=== PATIENT | female | born 1940 | race Caucasian/White ===

== ENCOUNTER 2017-05-11 12:36 | Emergency (ER) | payer MEDICARE, MEDICAID ==
--- NOTE | 2017-05-11 12:52 | EDM.PDOC ---
ED HPI GENERAL MEDICAL PROBLEM - General Chief Complaint: Lower Extremity Injury/Pain Stated Complaint: PAIN FROM FALL Time Seen by Provider: 05/11/17 12:46 Source of Information: Reports: Patient, Old Records History Limitations: Reports: No Limitations - History of Present Illness INITIAL COMMENTS - FREE TEXT/NARRATIVE: HISTORY AND PHYSICAL: History of present illness: Patient is a 77-year-old female who is brought to the emergency room from [facility], with complaints of bilateral knee pain. [facility] staff report that the patient had fallen while using her walker onto her knees this afternoon. Initially she was complaining of left hip, thigh and knee pain, but is now currently complaining of bilateral knee pain. Denies hitting her head or any loss of consciousness. Does take an aspirin daily but no anticoagulants. Normally is ambulatory. 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 Past medical history of GERD, osteoarthritis, bipolar disorder, elevated cholesterol, Alzheimer's and anxiety disorder. Review of systems: As per history of present illness and below otherwise all systems reviewed and negative. Past medical history: As per history of present illness and as reviewed below otherwise noncontributory. Surgical history: As per history of present illness and as reviewed below otherwise noncontributory. Social history: No reported history of drug or alcohol abuse. Family history: As per history of present illness and as reviewed below otherwise noncontributory. Physical exam: General: Well-developed and well-nourished 77-year-old female. Alert and pleasantly confused (baseline). Nagel no acute distress HEENT: Atraumatic, normocephalic, pupils reactive, negative for conjunctival pallor or scleral icterus, mucous membranes moist, throat clear, neck supple, nontender, trachea midline. Lungs: Clear to auscultation, breath sounds equal bilaterally, chest nontender. Heart: S1S2, regular, negative for clicks, rubs, or JVD. Abdomen: Soft, nondistended, nontender. Negative for masses or hepatosplenomegaly. Negative for costovertebral tenderness. Pelvis: Stable nontender. Genitourinary: Deferred. Rectal: Deferred. Extremities: Moves all per self, no tenderness with palpation, good flexion and extension of bilateral ankle/knee and hip. Negative for cords or calf pain. Strong pedal pulses bilaterally. Neurovascular unremarkable. Neuro: Awake, alert, oriented. Cranial nerves II through XII unremarkable. Cerebellum unremarkable. Motor and sensory unremarkable throughout. Exam nonfocal. Skin: Intact, warm, dry. No bruising or errythema noted. Due to the patient's mental status which is currently baseline and we'll do a head CT. X-ray of pelvis and bilateral knees. Head CT is normal. X-ray shows some degenerative changes but no acute fractures or dislocations. Nursing staff was able to get the patient to ambulate freely in the hallway with her walker. He does not complain of any pain or show any difficulty with ambulation. We'll discharge her back to double home. Results were shared with both a little nursing staff. Diagnostics: Xray Pelvis, xray bilateral knee and head CT Therapeutics: Ice Impression: 1. Fall 2. Knee pain Plan: 1. X-rays and CT were normal today (some degenerative changes, no fractures or dislocations). Please continue to use your walker with a standby assist until you feel steady on your feet. 2. Tylenol or ibuprofen as needed for pain management. Ice to the area for the next 24-48 hours. 3. Follow up with primary caregiver in the next 1-2 days. Return to the ED as needed and as discussed. Definitive disposition and diagnosis as appropriate pending reevaluation and review of above. Onset: Today Duration: Hour(s): Location: Reports: Lower Extremity, Left, Lower Extremity, Right bilateral knee Pain Score (Numeric/FACES): 3 - Related Data Allergies Allergy/AdvReac Type Severity Reaction Status Date / Time codeine Allergy Nausea Verified 05/14/17 15:20 divalproex sodium Allergy Nausea Verified 05/14/17 15:20 [From Depakote] Home Meds: Home Meds Acetaminophen [Tylenol Extra Strength] 500 mg PO Q4H PRN 11/03/14 [History] Aspirin 81 mg PO DAILY 11/03/14 [History] Calcium Carb & Citrate/Vit D3 [Citracal + D ER] 1 tab PO BID 11/03/14 [History] Donepezil HCl [Aricept] 10 mg PO BID 11/03/14 [History] Fluticasone Propionate [Flonase] 2 puff NASBOTH DAILY 11/03/14 [History] Gabapentin 300 mg PO BID 11/03/14 [History] Magnesium Hydroxide [Milk of Magnesia] 30 ml PO DAILY PRN 11/03/14 [History] Multivitamin [Multivitamins] 1 tab PO DAILY 11/03/14 [History] OLANZapine [ZyPREXA] 20 mg PO BEDTIME 11/03/14 [History] Acetaminophen 1,000 mg PO TID 05/14/17 [History] Bisacodyl [Dulcolax] 10 mg RC Q24H PRN 05/14/17 [History] Diazepam [Valium] 5 mg PO BID 05/14/17 [History] Docusate Sodium 100 mg PO BID 05/14/17 [History] FLUoxetine HCl [Prozac] 20 mg PO DAILY 05/14/17 [History] Memantine [Namenda Xr] 14 mg PO DAILY 05/14/17 [History] Oxybutynin 5 mg PO BID 05/14/17 [History] Polyethylene Glycol 3350 [MiraLAX] 17 gm PO BID 05/14/17 [History] atorvaSTATin Calcium [Atorvastatin Calcium] 10 mg PO BEDTIME 05/14/17 [History] Amoxicillin/Clavulanate K [Augmentin 875-125 MG] 1 tab PO Q12HR #6 tablet [Rx] Past Medical History HEENT History: Reports: Allergic Rhinitis Gastrointestinal History: Reports: GERD, Irritable Bowel Syndrome 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: Musculoskeletal History: Reports: Osteoarthritis Other Musculoskeletal History: generalized weakness, paralysis agitans Neurological History: Reports: Alzheimers Disease, Parkinson's, TIA Psychiatric History: Reports: Alzheimers Disease, Anxiety, Bipolar, Dementia, Depression, OCD, Psych Hospitalization(s) Other Psychiatric History: personailyt disorder Endocrine/Metabolic History: Reports: Osteoporosis Other Endocrine/Metabolic History: hyperlipidemia Oncologic (Cancer) History: Reports: Breast Dermatologic History: Reports: Melanoma - Past Surgical History Dermatological Surgical History: Reports: Plastic Surgical Reconstruction/Repair Social & Family History - Family History Family Medical History: Unobtainable - Tobacco Use Smoking Status *Q: Never Smoker - Recreational Drug Use Recreational Drug Use: No - Living Situation & Occupation Living situation: Reports: , Assisted Living Occupation: Retired Review of Systems - Review of Systems Review Of Systems: ROS reveals no pertinent complaints other than HPI. ED EXAM, GENERAL - Physical Exam Exam: See Below (See dictation) Course - Vital Signs Last Recorded V/S: Last Vital Signs Temp 98.3 F 05/11/17 14:14 Pulse 66 05/11/17 14:14 Resp 16 05/11/17 14:14 BP 102/48 L 05/11/17 14:14 Pulse Ox 95 05/11/17 14:14 Departure - Departure Time of Disposition: 14:06 Disposition: Home, Self-Care 01 Clinical Impression: Bilateral knee pain Qualifiers: Chronicity: unspecified Qualified Code(s): M25.561 - Pain in right knee Fall Qualifiers: Encounter type: initial encounter Qualified Code(s): W19.XXXA - Unspecified fall, initial encounter - Discharge Information Instructions: Contusion, [id number] Referrals: August Rebolledo MD [Primary Care Provider] - Forms: ED Department Discharge Additional Instructions: My general discharge The following information is given to patients seen in the emergency department who are being discharged to home. This information is to outline your options for follow-up care. We provide all patients seen in our emergency department with a follow-up referral. The need for follow-up, as well as the timing and circumstances, are variable depending upon the specifics of your emergency department visit. If you don't have a primary care physician on staff, we will provide you with a referral. We always advise you to contact your personal physician following an emergency department visit to inform them of the circumstance of the visit and for follow-up with them and/or the need for any referrals to a consulting specialist. The emergency department will also refer you to a specialist when appropriate. This referral assures that you have the opportunity for follow-up care with a specialist. All of these measure are taken in an effort to provide you with optimal care, which includes your follow-up. Under all circumstances we always encourage you to contact your private physician who remains a resource for coordinating your care. When calling for follow-up care, please make the office aware that this follow-up is from your recent emergency room visit. If for any reason you are refused follow-up, please contact the [facility] Emergency Department at and asked to speak to the emergency department charge nurse. [facility] [address] [place] [id number] 1. X-rays and CT were normal today (some degenerative changes, but no fractures or dislocations). Please continue to use your walker with a standby assist until you feel steady on your feet. 2. Tylenol or ibuprofen as needed for pain management. Ice to the area for the next 24-48 hours. 3. Follow up with primary caregiver in the next 1-2 days. Return to the ED as needed and as discussed.
--- NOTE | 2017-05-11 13:37 | CT ---
EXAMINATION: Non contrast CT head. Coronal and sagittal reformats. HISTORY: Pain FINDINGS: No evidence of intra or extra axial hemorrhage, mass, midline shift, hydrocephalus or edema. No hyp oattenuation changes in the major vascular territories to suggest acute infarct. Moderate periventric ular and subcortical white matter hypodensities are noted. No abnormal intracranial calcifications ar e detected. No evidence of substantial vascular calcifications. Mild mucosal thickening is noted within the left maxillary sinus. Opacification of the left posterome dial complex. Middle ears and mastoid air cells are clear. Orbits and globes are symmetric. Pituitary fossa appears unremarkable. The calvarium is intact. No evidence of skull fracture. IMPRESSION: 1. No acute intracranial findings. 2. Moderate small vessel ischemic changes. 3. Mild paranasal sinus disease.
--- NOTE | 2017-05-11 13:53 | CR ---
EXAMINATION: Bilateral knees HISTORY: Pain COMPARISON: None TECHNIQUE: 3 views bilaterally FINDINGS: There is no acute osseous abnormality, dislocation, or fracture. Bone mineralization appear s normal. Mild joint space narrowing within the medial compartments bilaterally and moderately within the right patellofemoral compartment. No joint effusion or soft tissue swelling. IMPRESSION: Degenerative changes without acute findings.
--- NOTE | 2017-05-11 13:53 | CR ---
EXAMINATION: Pelvis HISTORY: Pain COMPARISON: None TECHNIQUE: AP view FINDINGS: There is no acute osseous abnormality, dislocation, or fracture. No mineralization appears normal. Joint spaces within the hips appear grossly preserved however mild subchondral cystic change and sclerosis is noted. Iliopectineal lines are intact. SI joints are symmetric. IMPRESSION: 1. Mild degenerative changes within the hips. 2. No acute findings noted.
[2017-05-11 14:23] VITALS: BP 102/48
== END 2017-05-11 14:20 | disposition home or self-care (01) ==
LOC: MW.ED 12:36
DX: M25.561 Pain in right knee (principal); M25.562 Pain in left knee; K21.9 Gastro-esophageal reflux disease without esophagitis; W19.XXXA Unspecified fall, initial encounter; Z88.5 Allergy status to narcotic agent; Z88.8 Allergy status to other drugs, medicaments and biological substances; Z79.82 Long term (current) use of aspirin; Z79.899 Other long term (current) drug therapy
CPT/HCPCS: 70450; 70450-26; 72170; 72170-26; 735622650; 73562-50; 73562-RT; 99283; 99284

== ENCOUNTER 2017-05-14 14:48 | Observation (INO) | payer MEDICARE, MEDICAID ==
[2017-05-14] MEDS ORDERED: Sodium Chloride 0.9% 2.5 ML Syringe FLUSH PRN (14:52)
[2017-05-14] MEDS ORDERED: Sodium Chloride 0.9% 10 ML Syringe FLUSH PRN (14:52)
--- NOTE | 2017-05-14 14:57 | EDM.PDOC ---
ED HPI GENERAL MEDICAL PROBLEM - General Stated Complaint: UNRESPONSIVE Time Seen by Provider: 05/14/17 16:22 - History of Present Illness INITIAL COMMENTS - FREE TEXT/NARRATIVE: HISTORY AND PHYSICAL: History of present illness: Patient is a 77-year-old white female from the [facility] who presents with altered mental status she's been unresponsive for the better part of an hour plus she is center by Mark bolus she is an advanced directive of DO NOT RESUSCITATE and there is no other available information is no reported trauma vomiting fever chills or other complaints. On arrival patient is unresponsive she does localize to pain she is nonverbal. Review of systems: As per history of present illness and below otherwise all systems reviewed and negative. Past medical history: As per history of present illness and as reviewed below otherwise noncontributory. Surgical history: As per history of present illness and as reviewed below otherwise noncontributory. Social history: No reported history of drug or alcohol abuse. Family history: As per history of present illness and as reviewed below otherwise noncontributory. Physical exam: HEENT: Atraumatic, normocephalic, pupils reactive, conjunctival pallor noted, mucous membranes dry, neck supple, nontender, trachea midline. Lungs: Clear to auscultation, breath sounds equal bilaterally, chest nontender. Heart: S1S2, regular, negative for clicks, rubs, or JVD. Abdomen: Soft, nondistended, nontender. Negative for masses or hepatosplenomegaly. Negative for costovertebral tenderness. Pelvis: Stable nontender. Genitourinary: Deferred. Rectal: Deferred. Extremities: Atraumatic, negative for cords or calf pain. Neurovascular unremarkable. Neuro: Unresponsive localize the pain limited exam Diagnostics: CBC CMP PT/INR troponin lactic acid UA urine culture chest x-ray EKG CT brain ABG Therapeutics: Saline 1 L bolus O2 monitor Urias catheter Impression: #1 altered mental status #2 DNR Definitive disposition and diagnosis as appropriate pending reevaluation and review of above. - Related Data Allergies Allergy/AdvReac Type Severity Reaction Status Date / Time codeine Allergy Nausea Verified 05/14/17 15:20 divalproex sodium Allergy Nausea Verified 05/14/17 15:20 [From Depakote] Home Meds: Home Meds Acetaminophen [Tylenol Extra Strength] 500 mg PO Q4H PRN 11/03/14 [History] Aspirin 81 mg PO DAILY 11/03/14 [History] Calcium Carb & Citrate/Vit D3 [Citracal + D ER] 1 tab PO BID 11/03/14 [History] Donepezil HCl [Aricept] 10 mg PO BID 11/03/14 [History] Fluticasone Propionate [Flonase] 2 puff NASBOTH DAILY 11/03/14 [History] Gabapentin 300 mg PO BID 11/03/14 [History] Magnesium Hydroxide [Milk of Magnesia] 30 ml PO DAILY PRN 11/03/14 [History] Multivitamin [Multivitamins] 1 tab PO DAILY 11/03/14 [History] OLANZapine [ZyPREXA] 20 mg PO BEDTIME 11/03/14 [History] Acetaminophen 1,000 mg PO TID 05/14/17 [History] Bisacodyl [Dulcolax] 10 mg RC Q24H PRN 05/14/17 [History] Diazepam [Valium] 5 mg PO BID 05/14/17 [History] Docusate Sodium 100 mg PO BID 05/14/17 [History] FLUoxetine HCl [Prozac] 20 mg PO DAILY 05/14/17 [History] Memantine [Namenda XR] 14 mg PO DAILY 05/14/17 [History] Oxybutynin 5 mg PO BID 05/14/17 [History] Polyethylene Glycol 3350 [MiraLAX] 17 gm PO BID 05/14/17 [History] atorvaSTATin Calcium [Atorvastatin Calcium] 10 mg PO BEDTIME 05/14/17 [History] Past Medical History HEENT History: Reports: Allergic Rhinitis Gastrointestinal History: Reports: GERD, Irritable Bowel Syndrome 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: Musculoskeletal History: Reports: Osteoarthritis Other Musculoskeletal History: generalized weakness, paralysis agitans Neurological History: Reports: Alzheimers Disease, Parkinson's, TIA Psychiatric History: Reports: Alzheimers Disease, Anxiety, Bipolar, Dementia, Depression, OCD, Psych Hospitalization(s) Other Psychiatric History: personailyt disorder Endocrine/Metabolic History: Reports: Osteoporosis Other Endocrine/Metabolic History: hyperlipidemia Oncologic (Cancer) History: Reports: Breast Dermatologic History: Reports: Melanoma - Past Surgical History Dermatological Surgical History: Reports: Plastic Surgical Reconstruction/Repair Social & Family History - Family History Family Medical History: Unobtainable - Tobacco Use Smoking Status *Q: Never Smoker - Recreational Drug Use Recreational Drug Use: No - Living Situation & Occupation Living situation: Reports: , Assisted Living Occupation: Retired ED ROS GENERAL - Review of Systems Review Of Systems: ROS reveals no pertinent complaints other than HPI. ED EXAM, GENERAL - Physical Exam Exam: See Below (See dictation) Course - Vital Signs Last Recorded V/S: Last Vital Signs Temp 96.4 C H 05/14/17 15:11 Pulse 48 L 05/14/17 15:11 Resp 12 05/14/17 15:11 BP 88/58 L 05/14/17 15:11 Pulse Ox 90 L 05/14/17 15:11 - Orders/Labs/Meds Orders: Active Orders 24 hr Category Date Time Status Assess Neurological Status [RC] ASDIRECTED Care 05/14/17 14:52 Active Bedrest [RC] ASDIRECTED Care 05/14/17 14:52 Active Blood Glucose Check, Bedside [RC] STAT Care 05/14/17 14:52 Active Cardiac Monitoring [RC] . DIRECTED Care 05/14/17 14:52 Active EKG Documentation Completion [RC] STAT Care 05/14/17 14:52 Active Height and Weight [RC] UPON Care 05/14/17 14:52 Active Initiate Acute Stroke Protocol [RC] STAT Care 05/14/17 14:52 Active NIH Stroke Scale [RC] ASDIRECTED Care 05/14/17 14:52 Active Nursing Bedside Swallow Screen [RC] ASDIRECTED Care 05/14/17 14:52 Active Oxygen Therapy [RC] ASDIRECTED Care 05/14/17 14:52 Active Stroke Education, General [RC] Click to Edit Care 05/14/17 14:52 Active Vital Signs [RC] Q15M Care 05/14/17 14:52 Active Chest 1V Frontal [CR] Stat Exams 05/14/17 16:08 Ordered Head wo Cont [CT] Stat Exams 05/14/17 14:52 Taken Sodium Chloride 0.9% [Saline Flush] Med 05/14/17 14:52 Active 10 ml FLUSH ASDIRECTED PRN Sodium Chloride 0.9% [Saline Flush] Med 05/14/17 14:52 Active 2.5 ml FLUSH ASDIRECTED PRN Peripheral IV Insertion Adult [OM.PC] Stat Oth 05/14/17 14:52 Ordered Peripheral IV Insertion Adult [OM.PC] Stat Oth 05/14/17 14:52 Ordered Resuscitation Status Stat Resus Stat 05/14/17 14:52 Ordered Medication Orders Sodium Chloride (Saline Flush) 10 ml FLUSH ASDIRECTED PRN PRN Reason: Keep Vein Open Sodium Chloride (Saline Flush) 2.5 ml FLUSH ASDIRECTED PRN PRN Reason: Keep Vein Open Labs: Laboratory Tests 05/14/17 05/14/17 05/14/17 Range/Units 14:55 14:55 15:00 WBC 11.27 H (4.0-11.0) K/uL RBC 3.61 L (4.30-5.90) M/uL Hgb 11.2 L (12.0-16.0) g/dL Hct 33.7 L (36.0-46.0) % MCV 93.4 (80.0-98.0) fL MCH 31.0 (27.0-32.0) pg MCHC 33.2 (31.0-37.0) g/dL RDW Std Deviation 47.7 (28.0-62.0) fl RDW Coeff of Luc 14 (11.0-15.0) % Plt Count 223 (150-400) K/uL MPV 9.40 (7.40-12.00) fL Add Manual Diff YES Neutrophils % (Manual) 44 L (48.0-80.0) % Band Neutrophils % 1 % Lymphocytes % (Manual) 48 H (16.0-40.0) % Monocytes % (Manual) 7 (0.0-15.0) % Nucleated RBC % 0.0 /100WBC Absolute Seg Neuts 5.0 (1.4-5.7) Band Neutrophils # 0.1 Lymphocytes # (Manual) 5.4 H (0.6-2.4) Monocytes # (Manual) 0.8 (0.0-0.8) Nucleated RBCs # 0 K/uL INR 1.17 APTT 27.4 (18.6-31.3) SEC ABG pH (7.35-7.45) ABG pCO2 (35-45) mmHG ABG pO2 (75-100) mmHG ABG HCO3 (22-26) mEq/L ABG Total CO2 ABG Base Excess (-2.0-2.0) Sodium 141 (136-146) mmol/L Potassium 4.3 (3.5-5.1) mmol/L Chloride 106 (98-110) mmol/L Carbon Dioxide 23 (21-31) mmol/L BUN 24 H (6.0-23.0) mg/dL Creatinine 1.3 (0.6-1.5) mg/dL Est Cr Clr Drug Dosing TNP Estimated GFR (MDRD) 39.7 ml/min Glucose 120 H (60-110) mg/dL Calcium 9.8 (8.8-10.8) mg/dL Total Bilirubin 0.3 (0.1-1.5) mg/dL AST 35 (5-40) IU/L ALT 28 (8-54) IU/L Alkaline Phosphatase 40 (40-150) Troponin I < 0.10 (0.0-0.29) NG/ML Total Protein 7.0 (6.0-8.0) g/dL Albumin 3.9 (3.4-4.8) g/dL Globulin 3.1 (2.0-3.5) g/dL Albumin/Globulin Ratio 1.3 (1.3-2.8) TSH 3rd Generation 2.64 (0.47-5.0) uIU/mL Urine Color Urine Appearance Urine pH (5.0-8.0) Ur Specific [place] (1.001-1.035) Urine Protein (NEGATIVE) mg/dL Urine Glucose (UA) (NEGATIVE) mg/dL Urine Ketones (NEGATIVE) mg/dL Urine Occult Blood (NEGATIVE) Urine Nitrite (NEGATIVE) Urine Bilirubin (NEGATIVE) Urine Urobilinogen (<2.0) EU/dL Ur Leukocyte Esterase (NEGATIVE) Urine RBC (0-2/HPF) Urine WBC (0-5/HPF) Ur Epithelial Cells (NONE-FEW) Urine Bacteria (NEGATIVE) Urine Mucus (NONE-MOD) 05/14/17 05/14/17 Range/Units 15:20 15:45 WBC (4.0-11.0) K/uL RBC (4.30-5.90) M/uL Hgb (12.0-16.0) g/dL Hct (36.0-46.0) % MCV (80.0-98.0) fL MCH (27.0-32.0) pg MCHC (31.0-37.0) g/dL RDW Std Deviation (28.0-62.0) fl RDW Coeff of Luc (11.0-15.0) % Plt Count (150-400) K/uL MPV (7.40-12.00) fL Add Manual Diff Neutrophils % (Manual) (48.0-80.0) % Band Neutrophils % % Lymphocytes % (Manual) (16.0-40.0) % Monocytes % (Manual) (0.0-15.0) % Nucleated RBC % /100WBC Absolute Seg Neuts (1.4-5.7) Band Neutrophils # Lymphocytes # (Manual) (0.6-2.4) Monocytes # (Manual) (0.0-0.8) Nucleated RBCs # K/uL INR APTT (18.6-31.3) SEC ABG pH 7.450 (7.35-7.45) ABG pCO2 36 (35-45) mmHG ABG pO2 155 H (75-100) mmHG ABG HCO3 25 (22-26) mEq/L ABG Total CO2 23.1 ABG Base Excess 1.3 (-2.0-2.0) Sodium (136-146) mmol/L Potassium (3.5-5.1) mmol/L Chloride (98-110) mmol/L Carbon Dioxide (21-31) mmol/L BUN (6.0-23.0) mg/dL Creatinine (0.6-1.5) mg/dL Est Cr Clr Drug Dosing Estimated GFR (MDRD) ml/min Glucose (60-110) mg/dL Calcium (8.8-10.8) mg/dL Total Bilirubin (0.1-1.5) mg/dL AST (5-40) IU/L ALT (8-54) IU/L Alkaline Phosphatase (40-150) Troponin I (0.0-0.29) NG/ML Total Protein (6.0-8.0) g/dL Albumin (3.4-4.8) g/dL Globulin (2.0-3.5) g/dL Albumin/Globulin Ratio (1.3-2.8) TSH 3rd Generation (0.47-5.0) uIU/mL Urine Color YELLOW Urine Appearance CLEAR Urine pH 5.5 (5.0-8.0) Ur Specific [place] 1.010 (1.001-1.035) Urine Protein NEGATIVE (NEGATIVE) mg/dL Urine Glucose (UA) NEGATIVE (NEGATIVE) mg/dL Urine Ketones NEGATIVE (NEGATIVE) mg/dL Urine Occult Blood NEGATIVE (NEGATIVE) Urine Nitrite NEGATIVE (NEGATIVE) Urine Bilirubin NEGATIVE (NEGATIVE) Urine Urobilinogen 0.2 (<2.0) EU/dL Ur Leukocyte Esterase NEGATIVE (NEGATIVE) Urine RBC NONE SEEN (0-2/HPF) Urine WBC 0-1 (0-5/HPF) Ur Epithelial Cells FEW (NONE-FEW) Urine Bacteria FEW (NEGATIVE) Urine Mucus LIGHT (NONE-MOD) Meds: Medications Generic Name Dose Route Start Last Admin Trade Name Freq PRN Reason Stop Dose Admin Sodium Chloride 10 ml 05/14/17 14:52 Saline Flush FLUSH ASDIRECTED PRN Keep Vein Open Sodium Chloride 2.5 ml 05/14/17 14:52 Saline Flush FLUSH ASDIRECTED PRN Keep Vein Open Departure - Departure Time of Disposition: 16:22 Disposition: Refer to Observation Condition: Undetermined Clinical Impression: Altered mental status, Dehydration, DNR (do not resuscitate) - Discharge Information
[2017-05-14 15:18] LABS: CHLORIDE,CL 106 mmol/L (98-110); SODIUM,NA 141 mmol/L (136-146)
--- NOTE | 2017-05-14 17:19 | PCM.HP ---
H&P History of Present Illness - General Date of Service: 05/14/17 Admit Problem/Dx: Admission Diagnosis/Problem Admission Diagnosis/Problem Altered mental status Source of Information: Patient, EMS Notes Reviewed, Provider History Limitations: Reports: Altered Mental Status - History of Present Illness Initial Comments - Free Text/Narative: 77-year-old female from [facility] brought to emergency department secondary to altered mental status with past medical history of dementia, CVA, TIA, Mobitz type II AV block, Parkinson's, GERD, and multiple joint arthritis. As per [facility] patient seemed to be unresponsive for approximately 1 hour so was brought to the emergency department for further evaluation. She does have advanced directive DO NOT RESUSCITATE. As per [facility] there was no other reported history including trauma, nausea, vomiting, fevers, chills, diarrhea, chest pain, palpitations, shortness of breath, syncopal episodes, or new focal neurologic deficits. On initial arrival into the emergency department she was somewhat unresponsive but did localize to pain but was nonverbal with emergency room doctor. On examination patient does respond to questioning by myself when repeated. She states that she "does not like the nurse". She reports no significant pain however does state that she has an "upset belly". She denies any nausea or vomiting. She is agreeable to being admitted for observation. No other significant event findings on exam. Emergency department: Patient was hypotensive at 88/58. CBC, INR, APTT, ABG, and CMP were unremarkable. Troponin was negative, TSH was in normal limits. UA was negative. Chest x-ray was unremarkable. CT head showed no acute intracranial disease. There were some areas of white matter low attenuation which were nonspecific for likely reflect chronic small vessel ischemic changes. There was some mild maxillary sinusitis noted. Patient was afebrile and did respond to IV fluid resuscitation with improving blood pressure. Patient was admitted for altered mental status and dehydration. - Related Data Allergies/Adverse Reactions: Allergies Allergy/AdvReac Type Severity Reaction Status Date / Time codeine Allergy Nausea Verified 05/14/17 15:20 divalproex sodium Allergy Nausea Verified 05/14/17 15:20 [From Depakote] Home Medications: Home Meds Acetaminophen [Tylenol Extra Strength] 500 mg PO Q4H PRN 11/03/14 [History] Aspirin 81 mg PO DAILY 11/03/14 [History] Calcium Carb & Citrate/Vit D3 [Citracal + D ER] 1 tab PO BID 11/03/14 [History] Donepezil HCl [Aricept] 10 mg PO BID 11/03/14 [History] Fluticasone Propionate [Flonase] 2 puff NASBOTH DAILY 11/03/14 [History] Gabapentin 300 mg PO BID 11/03/14 [History] Magnesium Hydroxide [Milk of Magnesia] 30 ml PO DAILY PRN 11/03/14 [History] Multivitamin [Multivitamins] 1 tab PO DAILY 11/03/14 [History] OLANZapine [ZyPREXA] 20 mg PO BEDTIME 11/03/14 [History] Acetaminophen 1,000 mg PO TID 05/14/17 [History] Bisacodyl [Dulcolax] 10 mg RC Q24H PRN 05/14/17 [History] Diazepam [Valium] 5 mg PO BID 05/14/17 [History] Docusate Sodium 100 mg PO BID 05/14/17 [History] FLUoxetine HCl [Prozac] 20 mg PO DAILY 05/14/17 [History] Memantine [Namenda XR] 14 mg PO DAILY 05/14/17 [History] Oxybutynin 5 mg PO BID 05/14/17 [History] Polyethylene Glycol 3350 [MiraLAX] 17 gm PO BID 05/14/17 [History] atorvaSTATin Calcium [Atorvastatin Calcium] 10 mg PO BEDTIME 05/14/17 [History] Past Medical History HEENT History: Reports: Allergic Rhinitis Gastrointestinal History: Reports: GERD, Irritable Bowel Syndrome SKY DIVER History: Reports: Musculoskeletal History: Reports: Osteoarthritis Other Musculoskeletal History: generalized weakness, paralysis agitans Neurological History: Reports: Alzheimers Disease, Parkinson's, TIA Psychiatric History: Reports: Alzheimers Disease, Anxiety, Bipolar, Dementia, Depression, OCD, Psych Hospitalization(s) Other Psychiatric History: personailyt disorder Endocrine/Metabolic History: Reports: Osteoporosis Other Endocrine/Metabolic History: hyperlipidemia Oncologic (Cancer) History: Reports: Breast Dermatologic History: Reports: Melanoma - Infectious Disease History Infectious Disease History: Reports: Chicken Pox, Measles, Mumps - Past Surgical History Dermatological Surgical History: Reports: Plastic Surgical Reconstruction/Repair Social & Family History - Family History Family Medical History: Unobtainable - Tobacco Use Smoking Status *Q: Never Smoker - Recreational Drug Use Recreational Drug Use: No - Living Situation & Occupation Living situation: Reports: , Assisted Living Occupation: Retired H&P Review of Systems - Review of Systems: Review Of Systems: See Below Free Text/Narrative: Difficult to obtain secondary to altered mental status. General: Reports: Fatigue. Denies: Fever, Chills, Weakness HEENT: Denies: Headaches, Sore Throat Pulmonary: Denies: Shortness of Breath, Wheezing Cardiovascular: Denies: Chest Pain, Palpitations Gastrointestinal: Denies: Abdominal Pain, Nausea, Vomiting Genitourinary: Denies: Dysuria Musculoskeletal: Denies: Neck Pain, Leg Pain Neurological: Reports: Confusion Exam - Exam Exam: See Below - Vital Signs Vital Signs: Last Vital Signs Temp 205.5 F H 05/14/17 15:11 Pulse 48 L 05/14/17 15:11 Resp 12 05/14/17 15:11 BP 88/58 L 05/14/17 15:11 Pulse Ox 90 L 05/14/17 15:11 Weight: 64.546 kg - Exam Quality Assessment: Supplemental Oxygen, DVT Prophylaxis General: Alert, Cooperative HEENT: Conjunctiva Clear, EACs Clear, EOMI, Hearing Intact, Mucosa Moist & Tarrants , Nares Patent, Normal Nasal Septum, Posterior Pharynx Clear, PERRLA Neck: Supple, Trachea Midline, 2 Lungs: Clear to Auscultation, Normal Respiratory Effort Cardiovascular: Regular Rate, Regular Rhythm GI/Abdominal Exam: Normal Bowel Sounds, Soft, No Organomegaly, No Distention, Tender (epigastric) (Female) Exam: Deferred Rectal (Female) Exam: Deferred Extremities: Normal Inspection, Non-Tender, No Pedal Edema, Normal Capillary Refill Peripheral Pulses: 2+: Radial (L), Radial (R), Posterior Tibial (L), Posterior Tibial (R), Dorsalis Pedis (L), Dorsalis Pedis (R) Skin: Warm, Dry, Intact Neurological: Cranial Nerves Intact Neuro Extensive - Mental Status: Alert Neuro Extensive - Motor, Sensory, Reflexes: CN II-XII Intact Psychiatric: Alert, Normal Affect, Normal Mood - Patient Data Lab Results Last 24 hrs: Laboratory Results - last 24 hr 05/14/17 05/14/17 05/14/17 Range/Units 14:55 14:55 15:00 WBC 11.27 H (4.0-11.0) K/uL RBC 3.61 L (4.30-5.90) M/uL Hgb 11.2 L (12.0-16.0) g/dL Hct 33.7 L (36.0-46.0) % MCV 93.4 (80.0-98.0) fL MCH 31.0 (27.0-32.0) pg MCHC 33.2 (31.0-37.0) g/dL RDW Std Deviation 47.7 (28.0-62.0) fl RDW Coeff of Luc 14 (11.0-15.0) % Plt Count 223 (150-400) K/uL MPV 9.40 (7.40-12.00) fL Add Manual Diff YES Neutrophils % (Manual) 44 L (48.0-80.0) % Band Neutrophils % 1 % Lymphocytes % (Manual) 48 H (16.0-40.0) % Monocytes % (Manual) 7 (0.0-15.0) % Nucleated RBC % 0.0 /100WBC Absolute Seg Neuts 5.0 (1.4-5.7) Band Neutrophils # 0.1 Lymphocytes # (Manual) 5.4 H (0.6-2.4) Monocytes # (Manual) 0.8 (0.0-0.8) Nucleated RBCs # 0 K/uL INR 1.17 APTT 27.4 (18.6-31.3) SEC ABG pH (7.35-7.45) ABG pCO2 (35-45) mmHG ABG pO2 (75-100) mmHG ABG HCO3 (22-26) mEq/L ABG Total CO2 ABG Base Excess (-2.0-2.0) Sodium 141 (136-146) mmol/L Potassium 4.3 (3.5-5.1) mmol/L Chloride 106 (98-110) mmol/L Carbon Dioxide 23 (21-31) mmol/L BUN 24 H (6.0-23.0) mg/dL Creatinine 1.3 (0.6-1.5) mg/dL Est Cr Clr Drug Dosing TNP Estimated GFR (MDRD) 39.7 ml/min Glucose 120 H (60-110) mg/dL Calcium 9.8 (8.8-10.8) mg/dL Total Bilirubin 0.3 (0.1-1.5) mg/dL AST 35 (5-40) IU/L ALT 28 (8-54) IU/L Alkaline Phosphatase 40 (40-150) Troponin I < 0.10 (0.0-0.29) NG/ML Total Protein 7.0 (6.0-8.0) g/dL Albumin 3.9 (3.4-4.8) g/dL Globulin 3.1 (2.0-3.5) g/dL Albumin/Globulin Ratio 1.3 (1.3-2.8) TSH 3rd Generation 2.64 (0.47-5.0) uIU/mL Urine Color Urine Appearance Urine pH (5.0-8.0) Ur Specific [place] (1.001-1.035) Urine Protein (NEGATIVE) mg/dL Urine Glucose (UA) (NEGATIVE) mg/dL Urine Ketones (NEGATIVE) mg/dL Urine Occult Blood (NEGATIVE) Urine Nitrite (NEGATIVE) Urine Bilirubin (NEGATIVE) Urine Urobilinogen (<2.0) EU/dL Ur Leukocyte Esterase (NEGATIVE) Urine RBC (0-2/HPF) Urine WBC (0-5/HPF) Ur Epithelial Cells (NONE-FEW) Urine Bacteria (NEGATIVE) Urine Mucus (NONE-MOD) 05/14/17 05/14/17 Range/Units 15:20 15:45 WBC (4.0-11.0) K/uL RBC (4.30-5.90) M/uL Hgb (12.0-16.0) g/dL Hct (36.0-46.0) % MCV (80.0-98.0) fL MCH (27.0-32.0) pg MCHC (31.0-37.0) g/dL RDW Std Deviation (28.0-62.0) fl RDW Coeff of Luc (11.0-15.0) % Plt Count (150-400) K/uL MPV (7.40-12.00) fL Add Manual Diff Neutrophils % (Manual) (48.0-80.0) % Band Neutrophils % % Lymphocytes % (Manual) (16.0-40.0) % Monocytes % (Manual) (0.0-15.0) % Nucleated RBC % /100WBC Absolute Seg Neuts (1.4-5.7) Band Neutrophils # Lymphocytes # (Manual) (0.6-2.4) Monocytes # (Manual) (0.0-0.8) Nucleated RBCs # K/uL INR APTT (18.6-31.3) SEC ABG pH 7.450 (7.35-7.45) ABG pCO2 36 (35-45) mmHG ABG pO2 155 H (75-100) mmHG ABG HCO3 25 (22-26) mEq/L ABG Total CO2 23.1 ABG Base Excess 1.3 (-2.0-2.0) Sodium (136-146) mmol/L Potassium (3.5-5.1) mmol/L Chloride (98-110) mmol/L Carbon Dioxide (21-31) mmol/L BUN (6.0-23.0) mg/dL Creatinine (0.6-1.5) mg/dL Est Cr Clr Drug Dosing Estimated GFR (MDRD) ml/min Glucose (60-110) mg/dL Calcium (8.8-10.8) mg/dL Total Bilirubin (0.1-1.5) mg/dL AST (5-40) IU/L ALT (8-54) IU/L Alkaline Phosphatase (40-150) Troponin I (0.0-0.29) NG/ML Total Protein (6.0-8.0) g/dL Albumin (3.4-4.8) g/dL Globulin (2.0-3.5) g/dL Albumin/Globulin Ratio (1.3-2.8) TSH 3rd Generation (0.47-5.0) uIU/mL Urine Color YELLOW Urine Appearance CLEAR Urine pH 5.5 (5.0-8.0) Ur Specific [place] 1.010 (1.001-1.035) Urine Protein NEGATIVE (NEGATIVE) mg/dL Urine Glucose (UA) NEGATIVE (NEGATIVE) mg/dL Urine Ketones NEGATIVE (NEGATIVE) mg/dL Urine Occult Blood NEGATIVE (NEGATIVE) Urine Nitrite NEGATIVE (NEGATIVE) Urine Bilirubin NEGATIVE (NEGATIVE) Urine Urobilinogen 0.2 (<2.0) EU/dL Ur Leukocyte Esterase NEGATIVE (NEGATIVE) Urine RBC NONE SEEN (0-2/HPF) Urine WBC 0-1 (0-5/HPF) Ur Epithelial Cells FEW (NONE-FEW) Urine Bacteria FEW (NEGATIVE) Urine Mucus LIGHT (NONE-MOD) Result Diagrams: 05/14/17 14:55 05/14/17 14:55 *Q Meaningful Use (ADM) - VTE *Q VTE Criteria *Q: - Stroke *Q Stroke Criteria *Q: - AMI *Q AMI Criteria *Q: - Problem List (1) Sinusitis, acute SNOMED Code(s): 83586808 ICD Code: J01.90 - ACUTE SINUSITIS, UNSPECIFIED Status: Acute Priority: High Current Visit: Yes Qualifiers: Sinusitis location: maxillary Recurrence: not specified as recurrent Qualified Code(s): J01.00 - Acute maxillary sinusitis, unspecified (2) Altered mental status SNOMED Code(s): 787819202 ICD Code: R41.82 - ALTERED MENTAL STATUS, UNSPECIFIED Status: Acute Priority: High Current Visit: Yes Qualifiers: Altered mental status type: unspecified Qualified Code(s): R41.82 - Altered mental status, unspecified (3) Dehydration SNOMED Code(s): 87364230 ICD Code: E86.0 - DEHYDRATION Status: Acute Priority: High Current Visit: Yes Problem List Initiated/Reviewed/Updated: Yes Orders Last 24hrs: Active Orders 24 hr Category Date Time Status Patient Status [ADT] Stat ADT 05/14/17 16:23 Active Assess Neurological Status [RC] ASDIRECTED Care 05/14/17 14:52 Active Bedrest [RC] ASDIRECTED Care 05/14/17 14:52 Active Blood Glucose Check, Bedside [RC] STAT Care 05/14/17 14:52 Active Cardiac Monitoring [RC] . DIRECTED Care 05/14/17 14:52 Active EKG Documentation Completion [RC] STAT Care 05/14/17 14:52 Active Height and Weight [RC] UPON Care 05/14/17 14:52 Active Initiate Acute Stroke Protocol [RC] STAT Care 05/14/17 14:52 Active NIH Stroke Scale [RC] ASDIRECTED Care 05/14/17 14:52 Active Nursing Bedside Swallow Screen [RC] ASDIRECTED Care 05/14/17 14:52 Active Oxygen Therapy [RC] ASDIRECTED Care 05/14/17 14:52 Active Stroke Education, General [RC] Click to Edit Care 05/14/17 14:52 Active Vital Signs [RC] Q15M Care 05/14/17 14:52 Active Chest 1V Frontal [CR] Stat Exams 05/14/17 16:08 Taken Head wo Cont [CT] Stat Exams 05/14/17 14:52 Taken Sodium Chloride 0.9% [Saline Flush] Med 05/14/17 14:52 Active 10 ml FLUSH ASDIRECTED PRN Sodium Chloride 0.9% [Saline Flush] Med 05/14/17 14:52 Active 2.5 ml FLUSH ASDIRECTED PRN Peripheral IV Insertion Adult [OM.PC] Stat Oth 05/14/17 14:52 Ordered Peripheral IV Insertion Adult [OM.PC] Stat Oth 05/14/17 14:52 Ordered Resuscitation Status Stat Resus Stat 05/14/17 14:52 Ordered Medication Orders Sodium Chloride (Saline Flush) 10 ml FLUSH ASDIRECTED PRN PRN Reason: Keep Vein Open Sodium Chloride (Saline Flush) 2.5 ml FLUSH ASDIRECTED PRN PRN Reason: Keep Vein Open Assessment/Plan Comment:: 77-year-old female admitted altered mental status/dehydration and found to have sinusitis with past medical history of CVA, dementia, Parkinson's disease, Mobitz type II AV block, GERD, and multiple joint arthritis. Altered mental status: Unsure of patient's baseline however she did respond to me when I was talking to her. Looking through her notes this may be her baseline. She may have additional altered mental status secondary to current sinusitis as well as dehydration. We'll IV fluid resuscitate as well as continue assessment to see if mental status improves. Sinusitis: CT did show evidence of sinusitis. This may be causing some of her altered mental status. Will treat at this time secondary to mild leukocytosis with Augmentin twice a day and continue to assess. We'll restart home medication for her dementia and Parkinson's disease. Will also start Protonix 40 mg IV daily secondary to her history of GERD and her stating that she has an "upset belly". VTE proph: heparin, scd Dispo:1-2 days.
[2017-05-14] MEDS ORDERED: Ondansetron 4 MG/2 ML SDV IVPUSH PRN (18:19)
[2017-05-14] MEDS ORDERED: Ondansetron 4 MG Tab.DIS PO PRN (18:19)
[2017-05-14] MEDS ORDERED: Acetaminophen 325 MG Tab PO PRN (18:19)
[2017-05-14] MEDS ORDERED: Acetaminophen 500 MG Tab PO PRN (18:24)
[2017-05-14] MEDS ORDERED: Magnesium Hydroxide 400 MG/5 ML Susp 30 ML Cup PO PRN (18:24)
[2017-05-14] MEDS: Sodium Chloride 0.9% 1,000 ML IV SCH (18:47)
[2017-05-14] MEDS ORDERED: OLANZapine 5 MG Tab PO SCH (21:00)
[2017-05-14] MEDS ORDERED: atorvaSTATin 10 MG Tab PO SCH (21:00)
[2017-05-14] MEDS: Donepezil 10 MG Tab PO SCH (22:56)
[2017-05-14] MEDS: Docusate Sodium 100 MG Cap PO SCH (23:00)
[2017-05-14] MEDS: Gabapentin 100 MG Cap PO SCH (23:01)
[2017-05-14] MEDS: Amoxicillin/Clavulanate K 875-125 MG Tab PO SCH (23:01)
[2017-05-14] MEDS: Polyethylene Glycol 3350 Powder 17 GM Packet PO SCH (23:03)
[2017-05-14] MEDS: Oxybutynin 5 MG Tab PO SCH (23:03)
[2017-05-14] MEDS: Diazepam 5 MG Tab PO SCH (23:03)
[2017-05-14] MEDS: Heparin Sodium 5,000 Units/ML Vial SUBCUT SCH (23:06)
[2017-05-15] MEDS: Sodium Chloride 0.9% 1,000 ML IV SCH ×2 (02:53→12:58)
[2017-05-15 06:40] LABS: CHLORIDE,CL 114 mmol/L (98-110); SODIUM,NA 146 mmol/L (136-146)
[2017-05-15] MEDS ORDERED: Magnesium Sulfate/Water 2 GM in Premix Bag 1 BAG IV ONE (07:19)
[2017-05-15 08:31] VITALS: BP 122/52
[2017-05-15] MEDS: Pantoprazole 40 MG Vial IVPUSH SCH ×2 (08:39)
[2017-05-15] MEDS: Amoxicillin/Clavulanate K 875-125 MG Tab PO SCH (08:46)
[2017-05-15] MEDS: Donepezil 10 MG Tab PO SCH (08:46)
[2017-05-15] MEDS: Gabapentin 100 MG Cap PO SCH (08:46)
[2017-05-15] MEDS: Diazepam 5 MG Tab PO SCH (08:46)
[2017-05-15] MEDS: Oxybutynin 5 MG Tab PO SCH (08:47)
[2017-05-15] MEDS: Docusate Sodium 100 MG Cap PO SCH (08:47)
[2017-05-15] MEDS: Polyethylene Glycol 3350 Powder 17 GM Packet PO SCH (08:48)
[2017-05-15] MEDS ORDERED: Aspirin 81 MG Tab.Chew PO SCH (09:00)
[2017-05-15] MEDS ORDERED: FLUoxetine 20 MG Cap PO SCH (09:00)
[2017-05-15] MEDS ORDERED: MEMANTINE 14 MG PO SCH (09:00)
[2017-05-15] MEDS: Heparin Sodium 5,000 Units/ML Vial SUBCUT SCH (09:09)
--- NOTE | 2017-05-15 09:40 | PCM.DCSUM1 ---
Discharge Summary - Hospital Course HPI Initial Comments: 77-year-old female admitted 05/14/17 for altered mental status/dehydration and found to have sinusitis with past medical history of CVA, dementia, Parkinson's disease, Mobitz type II AV block, GERD, and multiple joint arthritis. Brief History: As per [facility] patient seemed to be unresponsive for approximately 1 hour so was brought to the emergency department for further evaluation on day of admission. She does have advanced directive DO NOT RESUSCITATE. As per [facility] there was no other reported history including trauma, nausea, vomiting, fevers, chills, diarrhea, chest pain, palpitations, shortness of breath, syncopal episodes, or new focal neurologic deficits. On initial arrival into the emergency department she was somewhat unresponsive but did localize to pain but was nonverbal with emergency room doctor. On examination patient did respond to questioning by myself when repeated. She stated that she "does not like the nurse". She reported no significant pain however did state that she has an "upset belly". She denied any nausea or vomiting. She was agreeable to being admitted for observation. No other significant event findings on exam. - Discharge Data Discharge Date: 05/15/17 Discharge Disposition: DC/Tfer to SNF 03 Condition: Good - Discharge Diagnosis/Problem(s) (1) Sinusitis, acute SNOMED Code(s): 56626197 ICD Code: J01.90 - ACUTE SINUSITIS, UNSPECIFIED Status: Acute Priority: High Current Visit: Yes Qualifiers: Sinusitis location: maxillary Recurrence: not specified as recurrent Qualified Code(s): J01.00 - Acute maxillary sinusitis, unspecified (2) Altered mental status SNOMED Code(s): 178757219 ICD Code: R41.82 - ALTERED MENTAL STATUS, UNSPECIFIED Status: Resolved Priority: High Current Visit: Yes Qualifiers: Altered mental status type: unspecified Qualified Code(s): R41.82 - Altered mental status, unspecified (3) Dehydration SNOMED Code(s): 84072517 ICD Code: E86.0 - DEHYDRATION Status: Acute Priority: High Current Visit: Yes - Patient Instructions Diet: Heart Healthy Diet Activity: Rest and Relax Today Driving: Do Not Drive Showering/Bathing: July Shower Notify Provider of: Fever, Increased Pain, Nausea and/or Vomiting Other/Special Instructions: Take medications as prescribed. PT/OT/ST for assessment and treatment at [facility]. Return to ED if new or worsening symptoms. - Discharge Plan Prescriptions/Med Rec: Amoxicillin/Clavulanate K [Augmentin 875-125 MG] 1 tab PO Q12HR #6 tablet Home Medications: Home Meds Acetaminophen [Tylenol Extra Strength] 500 mg PO Q4H PRN 11/03/14 [History] Aspirin 81 mg PO DAILY 11/03/14 [History] Calcium Carb & Citrate/Vit D3 [Citracal + D ER] 1 tab PO BID 11/03/14 [History] Donepezil HCl [Aricept] 10 mg PO BID 11/03/14 [History] Fluticasone Propionate [Flonase] 2 puff NASBOTH DAILY 11/03/14 [History] Gabapentin 300 mg PO BID 11/03/14 [History] Magnesium Hydroxide [Milk of Magnesia] 30 ml PO DAILY PRN 11/03/14 [History] Multivitamin [Multivitamins] 1 tab PO DAILY 11/03/14 [History] OLANZapine [ZyPREXA] 20 mg PO BEDTIME 11/03/14 [History] Acetaminophen 1,000 mg PO TID 05/14/17 [History] Bisacodyl [Dulcolax] 10 mg RC Q24H PRN 05/14/17 [History] Diazepam [Valium] 5 mg PO BID 05/14/17 [History] Docusate Sodium 100 mg PO BID 05/14/17 [History] FLUoxetine HCl [Prozac] 20 mg PO DAILY 05/14/17 [History] Memantine [Namenda Xr] 14 mg PO DAILY 05/14/17 [History] Oxybutynin 5 mg PO BID 05/14/17 [History] Polyethylene Glycol 3350 [MiraLAX] 17 gm PO BID 05/14/17 [History] atorvaSTATin Calcium [Atorvastatin Calcium] 10 mg PO BEDTIME 05/14/17 [History] Amoxicillin/Clavulanate K [Augmentin 875-125 MG] 1 tab PO Q12HR #6 tablet [Rx] Patient Handouts: Amoxicillin; Clavulanic Acid tablets, Confusion, Sinusitis, Adult, Dehydration, Adult Referrals: Agustin Lucas MD [Physician] - (Set up an appointment within this week. ) - Discharge Summary/Plan Comment DC Time >30 min.: Yes Discharge Summary/Plan Comment: 77-year-old female admitted 05/14/17 for altered mental status/dehydration and found to have sinusitis with past medical history of CVA, dementia, Parkinson's disease, Mobitz type II AV block, GERD, and multiple joint arthritis. As per [facility] patient seemed to be unresponsive for approximately 1 hour so was brought to the emergency department for further evaluation on day of admission. She does have advanced directive DO NOT RESUSCITATE. As per [facility] there was no other reported history including trauma, nausea , vomiting, fevers, chills, diarrhea, chest pain, palpitations, shortness of breath, syncopal episodes, or new focal neurologic deficits. On initial arrival into the emergency department she was somewhat unresponsive but did localize to pain but was nonverbal with emergency room doctor. On examination patient did respond to questioning by myself when repeated. She stated that she "does not like the nurse". She reported no significant pain however did state that she has an "upset belly". She denied any nausea or vomiting. She was agreeable to being admitted for observation. No other significant event findings on exam. Emergency department: Patient was hypotensive at 88/58. CBC, INR, APTT, ABG, and CMP were unremarkable. Troponin was negative, TSH was in normal limits. UA was negative. Chest x-ray was unremarkable. CT head showed no acute intracranial disease. There were some areas of white matter low attenuation which were nonspecific for likely reflect chronic small vessel ischemic changes. There was some mild maxillary sinusitis noted. Patient was afebrile and did respond to IV fluid resuscitation with improving blood pressure. Patient was admitted for altered mental status and dehydration. Patient was treated for acute sinusitis with Augmentin twice a day for a total of 5 days. On second day of admission patient was responding to questioning and more alert. She did receive IV fluid hydration while inpatient. Patient did state she does not like [facility] . She was also treated with Protonix while inpatient and reported no abdominal pain on day of discharge. On second day of admission patient was discharged in good condition back to [facility] with a prescription for Augmentin and to resume her normal home medications. Instructions were given to return to emergency department if there are any new or worsening symptoms. All labs during her stay at were within normal limits. - General Info Date of Service: 05/15/17 Admission Dx/Problem (Free Text: Admission Diagnosis/Problem Admission Diagnosis/Problem Altered mental status Subjective Update: No complaints this morning. Responding to questioning. States she has to go to the bathroom. When asked if she is ready to go back to [facility]. She states that she hates it there. No other complaints. Functional Status: Reports: Pain Controlled, Tolerating Diet, Urinating - Review of Systems General: Denies: Fever, Weakness, Fatigue HEENT: Denies: Headaches, Visual Changes Pulmonary: Denies: Shortness of Breath, Sputum, Hemoptysis Cardiovascular: Denies: Chest Pain, Palpitations, Edema Gastrointestinal: Denies: Abdominal Pain, Diarrhea, Nausea, Vomiting Genitourinary: Denies: Dysuria, Hematuria Musculoskeletal: Denies: Neck Pain, Leg Pain Skin: Denies: Cyanosis Neurological: Reports: Confusion. Denies: Dizziness, Headache Psychiatric: Reports: Confusion. Denies: Depression - Patient Data Vitals - Most Recent: Last Vital Signs Temp 212.7 F H 05/15/17 08:00 Pulse 67 05/15/17 08:00 Resp 18 05/15/17 08:00 BP 122/52 L 05/15/17 08:00 Pulse Ox 92 L 05/15/17 08:00 Weight - Most Recent: 64.546 kg I&O - Last 24 hours: Intake & Output 05/14/17 05/15/17 05/15/17 22:59 06:59 14:59 Intake Total 999 Balance 999 Lab Results - Last 24 hrs: Laboratory Results - last 24 hr 05/15/17 05/15/17 Range/Units 05:25 05:25 WBC 9.55 (4.0-11.0) K/uL RBC 3.42 L (4.30-5.90) M/uL Hgb 10.5 L (12.0-16.0) g/dL Hct 31.9 L (36.0-46.0) % MCV 93.3 (80.0-98.0) fL MCH 30.7 (27.0-32.0) pg MCHC 32.9 (31.0-37.0) g/dL RDW Std Deviation 48.0 (28.0-62.0) fl RDW Coeff of Luc 14 (11.0-15.0) % Plt Count 219 (150-400) K/uL MPV 9.90 (7.40-12.00) fL Neut % (Auto) 69.4 (48.0-80.0) % Lymph % (Auto) 22.0 (16.0-40.0) % [place] % (Auto) 8.3 (0.0-15.0) % Eos % (Auto) 0.1 (0.0-7.0) % Baso % (Auto) 0.2 (0.0-1.5) % Neut # (Auto) 6.6 H (1.4-5.7) K/uL Lymph # (Auto) 2.1 (0.6-2.4) K/uL [place] # (Auto) 0.8 (0.0-0.8) K/uL Eos # (Auto) 0.0 (0.0-0.7) K/uL Baso # (Auto) 0.0 (0.0-0.1) K/uL Nucleated RBC % 0.0 /100WBC Nucleated RBCs # 0 K/uL Sodium 146 (136-146) mmol/L Potassium 4.0 (3.5-5.1) mmol/L Chloride 114 H (98-110) mmol/L Carbon Dioxide 21 (21-31) mmol/L BUN 16 (6.0-23.0) mg/dL Creatinine 0.7 (0.6-1.5) mg/dL Est Cr Clr Drug Dosing 55.66 mL/min Estimated GFR (MDRD) > 60.0 ml/min Glucose 86 (60-110) mg/dL Calcium 9.0 (8.8-10.8) mg/dL Magnesium 1.4 L (1.5-2.3) mEq/L Total Bilirubin 0.4 (0.1-1.5) mg/dL AST 33 (5-40) IU/L ALT 25 (8-54) IU/L Alkaline Phosphatase 37 L (40-150) Total Protein 6.0 (6.0-8.0) g/dL Albumin 3.6 (3.4-4.8) g/dL Globulin 2.4 (2.0-3.5) g/dL Albumin/Globulin Ratio 1.5 (1.3-2.8) Med Orders - Current: Current Medications Acetaminophen (Tylenol) 650 mg PO Q4H PRN PRN Reason: Pain (Mild 1-3)/fever Acetaminophen (Tylenol Extra Strength) 500 mg PO Q4H PRN PRN Reason: Pain Amoxicillin/Clavulanate Potassium (Augmentin 875 Mg/125 Mg) 1 tab PO Q12HR [facility] Last Admin: 05/15/17 08:46 Dose: 1 tab Aspirin (Aspirin) 81 mg PO DAILY [facility] Last Admin: 05/15/17 08:47 Dose: 81 mg Atorvastatin Calcium (Lipitor) 10 mg PO BEDTIME [facility] Last Admin: 05/14/17 23:00 Dose: 10 mg Diazepam (Valium.) 5 mg PO BID [facility] Last Admin: 05/15/17 08:46 Dose: 5 mg Docusate Sodium (Colace) 100 mg PO BID [facility] Last Admin: 05/15/17 08:47 Dose: 100 mg Donepezil HCl (Aricept) 10 mg PO BID [facility] Last Admin: 05/15/17 08:46 Dose: 10 mg Fluoxetine HCl (Prozac) 20 mg PO DAILY [facility] Last Admin: 05/15/17 08:47 Dose: 20 mg Gabapentin (Neurontin) 300 mg PO BID [facility] Last Admin: 05/15/17 08:46 Dose: 300 mg Heparin Sodium (Porcine) (Heparin Sodium) 5,000 units SUBCUT Q12H [facility] Last Admin: 05/15/17 09:09 Dose: 5,000 units Sodium Chloride (Normal Saline) 1,000 mls @ 125 mls/hr IV ASDIRECTED [facility] Last Admin: 05/15/17 02:53 Dose: 125 mls/hr Magnesium Hydroxide (Milk Of Magnesia) 30 ml PO DAILY PRN PRN Reason: Constipation Non-Formulary Medication (Memantine [Namenda Xr]) 14 mg PO DAILY [facility] Last Admin: 05/15/17 08:51 Dose: 14 mg Olanzapine (Zyprexa) 20 mg PO BEDTIME [facility] Last Admin: 05/14/17 23:06 Dose: 20 mg Ondansetron HCl (Zofran Odt) 4 mg PO Q4H PRN PRN Reason: nausea, able to take PO Ondansetron HCl (Zofran) 4 mg IVPUSH Q4H PRN PRN Reason: Nausea Oxybutynin Chloride (Oxybutynin) 5 mg PO BID [facility] Last Admin: 05/15/17 08:47 Dose: 5 mg Pantoprazole Sodium (Protonix Iv) 40 mg IVPUSH DAILY [facility] Last Admin: 05/15/17 08:39 Dose: 40 mg Polyethylene Glycol (Miralax) 17 gm PO BID [facility] Last Admin: 05/15/17 08:48 Dose: 17 gm Sodium Chloride (Saline Flush) 10 ml FLUSH ASDIRECTED PRN PRN Reason: Keep Vein Open Sodium Chloride (Saline Flush) 2.5 ml FLUSH ASDIRECTED PRN PRN Reason: Keep Vein Open Discontinued Medications Magnesium Sulfate 2 gm/ Premix 50 mls @ 25 mls/hr IV ONETIME ONE Stop: 05/15/17 09:18 Last Admin: 05/15/17 08:44 Dose: 25 mls/hr - Exam Quality Assessment: Reports: DVT Prophylaxis General: Reports: Alert, Cooperative, No Acute Distress HEENT: Reports: Pupils Equal, Pupils Reactive, EOMI, Mucous Membr. Moist/[place] Neck: Reports: Supple, Trachea Midline, No JVD Lungs: Reports: Clear to Auscultation, Normal Respiratory Effort Cardiovascular: Reports: Regular Rate, Regular Rhythm GI/Abdominal Exam: Normal Bowel Sounds, Soft, Non-Tender, No Organomegaly, No Distention (Female) Exam: Deferred Rectal (Female) Exam: Deferred Back Exam: Reports: Normal Inspection, Full Range of Motion Extremities: Normal Inspection, Non-Tender, No Pedal Edema, Normal Capillary Refill Skin: Reports: Warm, Dry, Intact Neurological: Reports: No New Focal Deficit Psy/Mental Status: Reports: Alert, Normal Affect, Normal Mood *Q Meaningful Use (DIS) - VTE *Q VTE Criteria *Q: - Stroke *Q Stroke Criteria *Q: - AMI *Q AMI Criteria *Q:
--- NOTE | 2017-05-16 09:37 | CT ---
EXAM DATE: 05/14/17 PATIENT'S AGE: 77 Patient: CARMELO STAHL Facility: [place], [place] Site . Site : 1940 Study: CT Head STROKE PROTOCOL WO CONT [id number]/24/2018 3:13:42 PM Ordering Physician: Doctor Mares Final Report: HISTORY: Stroke. TECHNIQUE: Noncontrast head CT. COMPARISON: 05/11/2017. FINDINGS: There is no acute intracranial hemorrhage or acute ischemic infarct. Areas of white matter low attenuation are nonspecific but likely reflect sequelae of chronic small vessel ischemic changes. No mass effect or midline shift. No extra -axial collection or hematoma. No hydrocephalus. Mastoid air cells are clear. There is a small amount of fluid within both maxillary sinuses compatible with sinusitis. Partial opacification of ethmoid air cells. No acute skull fracture. IMPRESSION: 1. No acute intracranial disease. 2. Areas of white matter low attenuation which are nonspecific but likely reflect sequelae of chronic small vessel ischemic changes as before. 3. Mild maxillary sinusitis. Dictated by Negro Casas MD @ 05/14/2017 3:17:50 PM Dictated by: Negro Casas MD @ 05/14/2017 15:17:55 (Electronic Signature) Report Signed by Proxy. [facility]
--- NOTE | 2017-05-16 09:40 | CR ---
EXAM DATE: 05/14/17 PATIENT'S AGE: 77 Patient: CARMELO STAHL Facility: [place], [place] Site . Site : 1940 Study: XRay Chest [id number]/24/2018 4:35:39 PM Ordering Physician: Kendall Avila Final Report: INDICATION: Pain. Short of breath. TECHNIQUE: One view chest. COMPARISON: Portable chest on 10/19/2015. FINDINGS: Heart and mediastinum are normal in size. Pulmonary vessels are normal. The lungs are clear. No pleural fluid. No acute bony abnormality. IMPRESSION: Stable chest with no evidence of acute disease. Dictated by Heriberto Esquivel MD @ May 14 2017 4:44PM (Electronic Signature) Report Signed by Proxy. [facility]
== END 2017-05-15 14:50 ==
LOC: MW.ED 14:48 → MW.MS 16:23
PROVIDERS: ADMIT Family Medicine; ATTEND Family Medicine
DX: J01.00 Acute maxillary sinusitis, unspecified (principal); G20 Parkinson's disease; F02.80 Dementia in other diseases classified elsewhere, unspecified severity, without behavioral disturbance, psychotic disturbance, mood disturbance, and anxiety; I44.1 Atrioventricular block, second degree; K21.9 Gastro-esophageal reflux disease without esophagitis; M15.3 Secondary multiple arthritis; E86.0 Dehydration; G30.9 Alzheimer's disease, unspecified; M81.0 Age-related osteoporosis without current pathological fracture; E78.5 Hyperlipidemia, unspecified; F60.9 Personality disorder, unspecified; Z86.73 Personal history of transient ischemic attack (TIA), and cerebral infarction without residual deficits; Z66 Do not resuscitate; Z79.82 Long term (current) use of aspirin; Z79.899 Other long term (current) drug therapy; Z79.51 Long term (current) use of inhaled steroids; Z88.5 Allergy status to narcotic agent; Z88.8 Allergy status to other drugs, medicaments and biological substances; Z85.820 Personal history of malignant melanoma of skin
CPT/HCPCS: 36415; 36600; 70450; 71045; 80053; 81001; 82803; 83735; 84443; 84484; 85025; 85610; 85730; 93005; 96361; 96372; 96374; 96375; 96376; 99285; A9270; C9113; G0378; J1644; J3475; J7040; 99284

== ENCOUNTER 2019-05-07 01:24 | Inpatient (IN) | payer MEDICARE, MEDICAID ==
[2019-05-07] MEDS ORDERED: Sodium Chloride 0.9% 10 ML Syringe FLUSH PRN (01:29)
[2019-05-07] MEDS ORDERED: Sodium Chloride 0.9% 1,000 ML IV ONE (01:29)
[2019-05-07] MEDS ORDERED: Sodium Chloride 0.9% 2.5 ML Syringe FLUSH PRN (01:29)
[2019-05-07 02:05] LABS: BLOOD UREA NITROGEN,BUN 38 mg/dL (7.0-18.0); CARBON DIOXIDE,CO2 27.8 mmol/L (21.0-32.0); CHLORIDE,CL 108 mmol/L (98-107); GLUCOSE RANDOM 113 mg/dL (74-106); POTASSIUM,K 4.5 mmol/L (3.5-5.1); SODIUM,NA 145 mmol/L (136-145)
[2019-05-07] MEDS ORDERED: cefTRIAXone 1 GM in Sodium Chloride 0.9% 50 ML IV ONE (02:09)
[2019-05-07] MEDS ORDERED: Ciprofloxacin in D5W 400 MG in Premix Bag 1 BAG IV STA ×2 (02:10)
--- NOTE | 2019-05-07 02:13 | CR ---
INDICATION: Cough TECHNIQUE: Chest radiograph 1 view COMPARISON: 05/02/2018 FINDINGS: Mediastinum: The mediastinum is normal in appearance. Mild cardiomegaly is noted without interval change. Lung: Airspace opacities are present in the retrocardiac left lung base. No sign of pleural effusion seen. No pneumothorax is identified. Bone and Soft tissue: Unremarkable for age. IMPRESSIONS: 1. Airspace opacities are present in the retrocardiac left lung base. Findings are suspicious for pneumonia. Follow-up radiograph is recommended to document resolution. 2. Mild cardiomegaly is noted without interval change. Dictated by Josiah Calvillo MD @ 05/07/2019 2:09:31 AM Dictated by: Josiah Calvillo MD @ 05/07/2019 02:12:03 (Electronically Signed)
[2019-05-07] MEDS ORDERED: Sodium Chloride 0.9% 50 ML ONE (02:20)
[2019-05-07] MEDS ORDERED: cefTRIAXone 1 GM in Premix Bag 1 BAG IV ONE (02:20)
--- NOTE | 2019-05-07 02:20 | EDM.PDOC ---
ED HPI GENERAL MEDICAL PROBLEM - General Chief Complaint: Neuro Symptoms/Deficits Stated Complaint: POSSIBLE ASPIRATION Time Seen by Provider: 05/07/19 01:30 Source of Information: Reports: EMS - History of Present Illness INITIAL COMMENTS - FREE TEXT/NARRATIVE: The patient is a 79-year-old female from a alf facility with a history of dementia who presents to the ER for weakness and decreased mental status. Per EMS report, around 4 PM today the patient had coughed and choked and then slowly has had decreased responsiveness since then. They were concerned about aspiration at that time. It is unclear why it waited until 9 to 10 hours later but they finally called the [facility] to have her transferred to the ER. The patient does not know why she is here and cannot provide any history. Has had some low-grade temperatures. Treatments [employer]AGES: Reports: IV/IO - Related Data Allergies Allergy/AdvReac Type Severity Reaction Status Date / Time codeine Allergy Nausea Verified 05/07/19 01:50 divalproex sodium Allergy Nausea Verified 05/07/19 01:50 [facility] Home Meds: Home Meds Acetaminophen [Tylenol Extra Strength] 500 mg PO Q4H PRN 11/03/14 [History] Aspirin 81 mg PO DAILY 11/03/14 [History] Calcium Carb, Citrate/Vit D3 [Citracal + D ER] 1 tab PO BID 11/03/14 [History] Donepezil HCl [Aricept] 10 mg PO BID 11/03/14 [History] Fluticasone Propionate [Flonase] 2 puff NASBOTH DAILY 11/03/14 [History] Gabapentin 300 mg PO BID 11/03/14 [History] Magnesium Hydroxide [Milk of Magnesia] 30 ml PO DAILY PRN 11/03/14 [History] Multivitamin [Multivitamins] 1 tab PO DAILY 11/03/14 [History] OLANZapine [ZyPREXA] 20 mg PO BEDTIME 11/03/14 [History] Acetaminophen 1,000 mg PO TID 05/14/17 [History] Docusate Sodium 100 mg PO BID 05/14/17 [History] FLUoxetine HCl [Prozac] 20 mg PO DAILY 05/14/17 [History] Memantine [Namenda Xr] 14 mg PO DAILY 05/14/17 [History] Oxybutynin 5 mg PO BID 05/14/17 [History] atorvaSTATin Calcium [Atorvastatin Calcium] 10 mg PO BEDTIME 05/14/17 [History] bisacodyL [Dulcolax] 10 mg RC Q24H PRN 05/14/17 [History] diazePAM [Valium] 5 mg PO BID 05/14/17 [History] polyethylene glycoL 3350 [MiraLAX] 17 gm PO BID 05/14/17 [History] Amoxicillin/Clavulanate K [Augmentin 875-125 MG] 1 tab PO Q12HR #6 tablet [Rx] Past Medical History HEENT History: Reports: Allergic Rhinitis Gastrointestinal History: Reports: GERD, Irritable Bowel Syndrome NETWORK LEAD History: Reports: Musculoskeletal History: Reports: Osteoarthritis Other Musculoskeletal History: generalized weakness, paralysis agitans Neurological History: Reports: Alzheimers Disease, Parkinson's, TIA Psychiatric History: Reports: Alzheimers Disease, Anxiety, Bipolar, Dementia, Depression, OCD, Psych Hospitalization(s) Other Psychiatric History: personailyt disorder Endocrine/Metabolic History: Reports: Osteoporosis Other Endocrine/Metabolic History: hyperlipidemia Oncologic (Cancer) History: Reports: Breast Dermatologic History: Reports: Melanoma - Infectious Disease History Infectious Disease History: Reports: Chicken Pox, Measles, Mumps - Past Surgical History Dermatological Surgical History: Reports: Plastic Surgical Reconstruction/Repair Social & Family History - Family History Family Medical History: Unobtainable - Caffeine Use Caffeine Use: Reports: Soda - Living Situation & Occupation Living situation: Reports: , Assisted Living Occupation: Retired ED ROS GENERAL - Review of Systems Review Of Systems: Unable To Obtain Reason Not Obtained: Dementia and patient appears to weak ED EXAM, NEURO - Physical Exam Exam: See Below Text/Narrative:: Constitutional: Elderly, looks like she does not feel well, feels very warm to the touch lying in bed with her eyes closed HEENT.: Normocephalic, Atraumatic, PERRL, EOMI, External ears are atraumatic, nares are patent without epistaxis Neck: Normal range of motion, Trachea Midline, No stridor Respiratory.: No respiratory distress, No tachypnea, occasional dry cough, lungs Clear to Auscultation bilaterally without wheezes, rales, or rhonchi Cardiovascular.: Regular rate and Rhythm without murmurs, rubs, or gallops, good peripheral perfusion GI: Abdomen soft and non tender, obese, no masses, no rebound, rigidity, or guarding Genital Urinary: Deferred Musculoskeletal: Good range of motion. All 4 extremities present and atraumatic , no edema Back: Full Range of Motion Skin: Warm, Dry, Color is ethnicity appropriate, No acute rash. Lymphatic: No lymphadenopathy noted Neurological: Eyes are closed but responds to verbal stimuli, does not appear oriented, moves all 4 extremities equally but motor strength is only 3/5 in all 4 extremities Psych: Unable to assess Course - Vital Signs Text/Narrative:: Based on the history and exam I am not concerned about a stroke, plan most concerned about some type of infectious process with early sepsis. The patient is not in shock by any means so fluids have not been initiated. Chest x-ray is reviewed and interpreted by me -are no pulmonary infiltrates, pleural effusions, pneumothorax, thoracic masses or any acute pathology. The patient has a significant leukocytosis with a significant left shift and +3 bacteria in the urine it 20 white blood cells and it is a clean sample. This is the only source that I can find and the patient symptomology is consistent with early urosepsis. She was started with Rocephin 1the and Cipro milligrams IV. The patient is a code status level 2. The patient will be admitted to the hospital to continue aggressive medical therapy, with further reevaluation and disposition as appropriate. Last Recorded V/S: Last Vital Signs Temp 37.9 C 05/07/19 01:49 Pulse 68 05/07/19 02:30 Resp 20 05/07/19 02:30 BP 116/51 L 05/07/19 02:30 Pulse Ox 95 05/07/19 02:30 - Orders/Labs/Meds Orders: Active Orders 24 hr Category Date Time Status Admission Status [Patient Status] [ADT] Stat ADT 05/07/19 02:36 Ordered CULTURE BLOOD [BC] Stat Lab 05/07/19 01:25 Received CULTURE BLOOD [BC] Stat Lab 05/07/19 01:30 Received Ciprofloxacin in D5W [Cipro in D5W 400 MG/200 ML] 400 Med 05/07/19 02:10 Active mg Premix Bag 1 bag IV Q12H Sodium Chloride 0.9% [Saline Flush] Med 05/07/19 01:29 Active 10 ml FLUSH ASDIRECTED PRN Sodium Chloride 0.9% [Saline Flush] Med 05/07/19 01:29 Active 2.5 ml FLUSH ASDIRECTED PRN cefTRIAXone [Rocephin in Dextrose,Iso-Osm 1 GM/50 ML] 1 [facility] 05/07/19 02:20 Active gm Premix Bag 1 bag IV ONETIME Blood Culture x2 Reflex Set [OM.PC] Stat [facility] 05/07/19 01:29 Ordered Saline Lock Insert [OM.PC] Stat [facility] 05/07/19 01:29 Ordered Severe Sepsis Onset Time [OM.PC] Stat [facility] 05/07/19 01:28 Ordered Severe Sepsis Onset Time [OM.PC] Stat [facility] 05/07/19 01:29 Ordered Medication Orders Ciprofloxacin/Dextrose 400 mg/ (Premix) 200 mls @ 200 mls/hr IV Q12H STA Stop: 05/07/19 03:09 Last Admin: 05/07/19 02:33 Dose: 200 mls/hr Ceftriaxone Sodium/Dextrose 1 (gm/ Premix) 50 mls @ 100 mls/hr IV ONETIME ONE Stop: 05/07/19 02:49 Last Admin: 05/07/19 02:29 Dose: 100 mls/hr Sodium Chloride (Saline Flush) 10 ml FLUSH ASDIRECTED PRN PRN Reason: Keep Vein Open Sodium Chloride (Saline Flush) 2.5 ml FLUSH ASDIRECTED PRN PRN Reason: Keep Vein Open Labs: Laboratory Tests 05/07/19 05/07/19 05/07/19 Range/Units 01:25 01:25 01:25 WBC 21.49 H (4.0-11.0) K/uL RBC 3.59 L (4.30-5.90) M/uL Hgb 11.6 L (12.0-16.0) g/dL Hct 33.5 L (36.0-46.0) % MCV 93.3 (80.0-98.0) fL MCH 32.3 H (27.0-32.0) pg MCHC 34.6 (31.0-37.0) g/dL RDW Std Deviation 44.2 (28.0-62.0) fl RDW Coeff of Luc 14 (11.0-15.0) % Plt Count 321 (150-400) K/uL MPV 9.80 (7.40-12.00) fL Neut % (Auto) 81.8 H (48.0-80.0) % Lymph % (Auto) 10.7 L (16.0-40.0) % Williams % (Auto) 7.4 (0.0-15.0) % Eos % (Auto) 0.0 (0.0-7.0) % Baso % (Auto) 0.1 (0.0-1.5) % Neut # (Auto) 17.6 H (1.4-5.7) K/uL Lymph # (Auto) 2.3 (0.6-2.4) K/uL Williams # (Auto) 1.6 H (0.0-0.8) K/uL Eos # (Auto) 0.0 (0.0-0.7) K/uL Baso # (Auto) 0.0 (0.0-0.1) K/uL Lactate 1.4 (0.20-2.00) mmol/L Sodium 145 (136-145) mmol/L Potassium 4.5 (3.5-5.1) mmol/L Chloride 108 H (98-107) mmol/L Carbon Dioxide 27.8 (21.0-32.0) mmol/L BUN 38 H (7.0-18.0) mg/dL Creatinine 1.5 H (0.6-1.0) mg/dL Est Cr Clr Drug Dosing TNP Estimated GFR (MDRD) 33.5 ml/min Glucose 113 H (74-106) mg/dL Calcium 9.7 (8.5-10.1) mg/dL Total Bilirubin 0.4 (0.2-1.0) mg/dL AST 48 H (15-37) IU/L ALT 37 (14-63) IU/L Alkaline Phosphatase 37 L (46-116) U/L Total Protein 6.9 (6.4-8.2) g/dL Albumin 3.2 L (3.4-5.0) g/dL Globulin 3.7 (2.6-4.0) g/dL Albumin/Globulin Ratio 0.9 (0.9-1.6) Urine Color Urine Appearance Urine pH (5.0-8.0) Ur Specific Interior (1.001-1.035) Urine Protein (NEGATIVE) mg/dL Urine Glucose (UA) (NEGATIVE) mg/dL Urine Ketones (NEGATIVE) mg/dL Urine Occult Blood (NEGATIVE) Urine Nitrite (NEGATIVE) Urine Bilirubin (NEGATIVE) Urine Urobilinogen (<2.0) EU/dL Ur Leukocyte Esterase (NEGATIVE) Urine RBC (0-2/HPF) Urine WBC (0-5/HPF) Ur Epithelial Cells (NONE-FEW) Urine Bacteria (NEGATIVE) 05/07/19 Range/Units 01:42 WBC (4.0-11.0) K/uL RBC (4.30-5.90) M/uL Hgb (12.0-16.0) g/dL Hct (36.0-46.0) % MCV (80.0-98.0) fL MCH (27.0-32.0) pg MCHC (31.0-37.0) g/dL RDW Std Deviation (28.0-62.0) fl RDW Coeff of Ulc (11.0-15.0) % Plt Count (150-400) K/uL MPV (7.40-12.00) fL Neut % (Auto) (48.0-80.0) % Lymph % (Auto) (16.0-40.0) % Williams % (Auto) (0.0-15.0) % Eos % (Auto) (0.0-7.0) % Baso % (Auto) (0.0-1.5) % Neut # (Auto) (1.4-5.7) K/uL Lymph # (Auto) (0.6-2.4) K/uL Williams # (Auto) (0.0-0.8) K/uL Eos # (Auto) (0.0-0.7) K/uL Baso # (Auto) (0.0-0.1) K/uL Lactate (0.20-2.00) mmol/L Sodium (136-145) mmol/L Potassium (3.5-5.1) mmol/L Chloride (98-107) mmol/L Carbon Dioxide (21.0-32.0) mmol/L BUN (7.0-18.0) mg/dL Creatinine (0.6-1.0) mg/dL Est Cr Clr Drug Dosing Estimated GFR (MDRD) ml/min Glucose (74-106) mg/dL Calcium (8.5-10.1) mg/dL Total Bilirubin (0.2-1.0) mg/dL AST (15-37) IU/L ALT (14-63) IU/L Alkaline Phosphatase (46-116) U/L Total Protein (6.4-8.2) g/dL Albumin (3.4-5.0) g/dL Globulin (2.6-4.0) g/dL Albumin/Globulin Ratio (0.9-1.6) Urine Color YELLOW Urine Appearance HAZY Urine pH 6.0 (5.0-8.0) Ur Specific Interior 1.020 (1.001-1.035) Urine Protein NEGATIVE (NEGATIVE) mg/dL Urine Glucose (UA) NEGATIVE (NEGATIVE) mg/dL Urine Ketones NEGATIVE (NEGATIVE) mg/dL Urine Occult Blood NEGATIVE (NEGATIVE) Urine Nitrite NEGATIVE (NEGATIVE) Urine Bilirubin NEGATIVE (NEGATIVE) Urine Urobilinogen 0.2 (<2.0) EU/dL Ur Leukocyte Esterase MODERATE H (NEGATIVE) Urine RBC 0-2 (0-2/HPF) Urine WBC 15-20 (0-5/HPF) Ur Epithelial Cells RARE (NONE-FEW) Urine Bacteria 3+ H (NEGATIVE) Meds: Medications Generic Name Dose Route Start Last Admin Trade Name Freq PRN Reason Stop Dose Admin Ciprofloxacin/Dextrose 400 mg/ 200 mls @ 200 mls/hr 05/07/19 02:10 05/07/19 02:33 Premix IV 05/07/19 03:09 200 mls/hr Q12H STA Administration Ceftriaxone Sodium/Dextrose 1 50 mls @ 100 mls/hr 05/07/19 02:20 05/07/19 02: 29 gm/ Premix IV 05/07/19 02:49 100 mls/hr ONETIME ONE Administration Sodium Chloride 10 ml 05/07/19 01:29 Saline Flush FLUSH ASDIRECTED PRN Keep Vein Open Sodium Chloride 2.5 ml 05/07/19 01:29 Saline Flush FLUSH ASDIRECTED PRN Keep Vein Open Discontinued Medications Generic Name Dose Route Start Last Admin Trade Name Freq PRN Reason Stop Dose Admin Sodium Chloride 1,000 mls @ 1,000 mls/hr 05/07/19 01:29 05/07/19 01:46 Normal Saline IV 05/07/19 02:28 1,000 mls/hr .Bolus ONE Administration Ceftriaxone Sodium 1 gm/ 50 mls @ 100 mls/hr 05/07/19 02:09 05/07/19 02:30 Sodium Chloride IV 05/07/19 02:38 Not Given ONETIME ONE Sodium Chloride Confirm 05/07/19 02:20 05/07/19 02:30 Normal Saline Administered 05/07/19 02:21 Not Given Dose 50 mls @ as directed .ROUTE .STK-MED ONE Ciprofloxacin/Dextrose Confirm 05/07/19 02:21 05/07/19 02:30 Cipro In D5w 400 Mg/200 Ml Administered 05/07/19 02:22 Not Given Dose 200 mls @ as directed .ROUTE .STK-MED ONE Departure - Departure Time of Disposition: 02:44 Disposition: Admitted As Inpatient 66 Condition: Fair Clinical Impression: Sepsis due to urinary tract infection - Discharge Information Forms: ED Department Discharge Sepsis Event Note - Evaluation Sepsis Screening Result: No Definite Risk - Focused Exam Vital Signs: Vital Signs Temp Temp Pulse Resp BP Pulse Ox 05/07/19 02:30 68 20 116/51 L 95 05/07/19 01:49 37.9 C 05/07/19 01:35 92 L 05/07/19 01:28 37.3 C 73 22 H 116/63 89 L Date Exam was Performed: 05/07/19 Time Exam was Performed: 02:40 - My Orders Last 24 Hours: My Active Orders 05/07/19 01:25 CULTURE BLOOD [BC] Stat 05/07/19 01:28 Severe Sepsis Onset Time [OM.PC] Stat 05/07/19 01:29 Sodium Chloride 0.9% [Saline Flush] 10 ml FLUSH ASDIRECTED PRN Sodium Chloride 0.9% [Saline Flush] 2.5 ml FLUSH ASDIRECTED PRN Blood Culture x2 Reflex Set [OM.PC] Stat Saline Lock Insert [OM.PC] Stat Severe Sepsis Onset Time [OM.PC] Stat 05/07/19 01:30 CULTURE BLOOD [BC] Stat 05/07/19 02:10 Ciprofloxacin in D5W [Cipro in D5W 400 MG/200 ML] 400 mg Premix Bag 1 bag IV Q12H 05/07/19 02:20 cefTRIAXone [Rocephin in Dextrose,Iso-Osm 1 GM/50 ML] 1 gm Premix Bag 1 bag IV ONETIME 05/07/19 02:36 Admission Status [Patient Status] [ADT] Stat - Assessment/Plan Last 24 Hours: My Active Orders 05/07/19 01:25 CULTURE BLOOD [BC] Stat 05/07/19 01:28 Severe Sepsis Onset Time [OM.PC] Stat 05/07/19 01:29 Sodium Chloride 0.9% [Saline Flush] 10 ml FLUSH ASDIRECTED PRN Sodium Chloride 0.9% [Saline Flush] 2.5 ml FLUSH ASDIRECTED PRN Blood Culture x2 Reflex Set [OM.PC] Stat Saline Lock Insert [OM.PC] Stat Severe Sepsis Onset Time [OM.PC] Stat 05/07/19 01:30 CULTURE BLOOD [BC] Stat 05/07/19 02:10 Ciprofloxacin in D5W [Cipro in D5W 400 MG/200 ML] 400 mg Premix Bag 1 bag IV Q12H 05/07/19 02:20 cefTRIAXone [Rocephin in Dextrose,Iso-Osm 1 GM/50 ML] 1 gm Premix Bag 1 bag IV ONETIME 05/07/19 02:36 Admission Status [Patient Status] [ADT] Stat
[2019-05-07] MEDS ORDERED: Ciprofloxacin in D5W 200 ML ONE (02:21)
[2019-05-07] MEDS ORDERED: Ondansetron 4 MG/2 ML SDV IVPUSH PRN (07:53)
[2019-05-07] MEDS ORDERED: Acetaminophen 325 MG Tab PO PRN (07:53)
--- NOTE | 2019-05-07 07:56 | PCM.HP.2 ---
H&P History of Present Illness - General Date of Service: 05/07/19 Admit Problem/Dx: Admission Diagnosis/Problem Admission Diagnosis/Problem Urosepsis Source of Information: Patient History Limitations: Reports: No Limitations - History of Present Illness Initial Comments - Free Text/Narative: This 79 year old female with pmh of R breast mastectomy d/t breast ca, dementia , HLD, Parkinson's disease and IBS presented to the ED from [facility] with complaints of a change in mental status. There was concern for aspiration, after she was noted to choke on food yesterday morning. She is unable to give any history. All history obtained from [place] paperwork. She was noted to have mild elevation in temps at [place] as well. In the ED leukocytosis noted at 21,490, hbg 11.6, Hct 33.5, Na 145, K+ 4.5, lactic acid 1.4, BUN 38 and Cr 1.5 Ua revealed +3 bacteria, moderate leukocyte esterase, pyuria 15-20, CXR revealed possible opacity L lung base and mild cardiomegaly noted. BP have been stable 110-130/60-70s, temps 99-100.4., 2 L NC. In the ED she was treated with 1 L NS as well as Rocephin and Ciprofloxacin. She will be admitted for Urosepsis. - Related Data Allergies/Adverse Reactions: Allergies Allergy/AdvReac Type Severity Reaction Status Date / Time codeine Allergy Nausea Verified 05/07/19 01:50 divalproex sodium Allergy Nausea Verified 05/07/19 01:50 [From Depakote] Home Medications: Home Meds Aspirin 81 mg PO DAILY 11/03/14 [History] Calcium Carb, Citrate/Vit D3 [Citracal + D ER] 1 tab PO DAILY 11/03/14 [History] Donepezil HCl [Aricept] 10 mg PO BID 11/03/14 [History] Gabapentin 300 mg PO BID 11/03/14 [History] Magnesium Hydroxide [Milk of Magnesia] 30 ml PO DAILY PRN 11/03/14 [History] Multivitamin [Multivitamins] 1 tab PO DAILY 11/03/14 [History] Acetaminophen 1,000 mg PO TID PRN 05/14/17 [History] Docusate Sodium 100 mg PO BID 05/14/17 [History] atorvaSTATin Calcium [Atorvastatin Calcium] 10 mg PO BEDTIME 05/14/17 [History] bisacodyL [Dulcolax] 10 mg RC Q24H PRN 05/14/17 [History] diazePAM [Valium] 5 mg PO BID 05/14/17 [History] polyethylene glycoL 3350 [MiraLAX] 17 gm PO BID 05/14/17 [History] FLUoxetine HCl [Prozac] 40 mg PO DAILY 05/07/19 [History] Fluticasone Propionate [Flonase Allergy Relief] 1 puff MISSY DAILY 05/07/19 [ History] Past Medical History HEENT History: Reports: Allergic Rhinitis Other HEENT History: unspecified sensoneural hearing loss, dysphagia oropharyngeal phase, dysphonia Cardiovascular History: Reports: High Cholesterol, Other (See Below) Other Cardiovascular History: atrioventricular block second degree Gastrointestinal History: Reports: GERD, Irritable Bowel Syndrome Genitourinary History: Reports: Other (See Below) Other Genitourinary History: chronic bladder pain [employer] History: Reports: Musculoskeletal History: Reports: Osteoarthritis Other Musculoskeletal History: generalized weakness, paralysis agitans Neurological History: Reports: Alzheimers Disease, Parkinson's, TIA Psychiatric History: Reports: Alzheimers Disease, Anxiety, Bipolar, Dementia, Depression, OCD, Psych Hospitalization(s) Other Psychiatric History: personailyt disorder Endocrine/Metabolic History: Reports: Osteoporosis Other Endocrine/Metabolic History: hyperlipidemia Oncologic (Cancer) History: Reports: Breast Dermatologic History: Reports: Melanoma Other Dermatologic History: pruritus - Infectious Disease History Infectious Disease History: Reports: Chicken Pox, Measles, Mumps - Past Surgical History Cardiovascular Surgical History: Reports: None Dermatological Surgical History: Reports: Plastic Surgical Reconstruction/Repair Social & Family History - Family History Family Medical History: Unobtainable - Tobacco Use Smoking Status *Q: Never Smoker Tobacco Use Comment: patient was unable to answer question. she was very sleepy and forgetful. Second Hand Smoke Exposure: No - Caffeine Use Caffeine Use: Reports: Soda Caffeine Use Comment: patient was unable to answer question. she was very sleepy and forgetful. - Recreational Drug Use Recreational Drug Use: No - Living Situation & Occupation Living situation: Reports: , Assisted Living Occupation: Retired H&P Review of Systems - Review of Systems: Review Of Systems: See Below (per patient) General: Denies: Fever, Chills HEENT: Denies: Headaches, Sinus Congestion Pulmonary: Reports: No Symptoms. Denies: Shortness of Breath Cardiovascular: Reports: No Symptoms. Denies: Chest Pain Gastrointestinal: Reports: No Symptoms. Denies: Abdominal Pain Genitourinary: Reports: Dysuria, Frequency Musculoskeletal: Reports: No Symptoms Psychiatric: Reports: No Symptoms Neurological: Reports: No Symptoms Hematologic/Lymphatic: Reports: No Symptoms Immunologic: Reports: No Symptoms Exam - Exam Exam: See Below - Vital Signs Vital Signs: Last Vital Signs Temp 97.2 F 05/07/19 07:10 Pulse 75 05/07/19 07:10 Resp 18 05/07/19 07:10 BP 118/60 05/07/19 07:10 Pulse Ox 94 L 05/07/19 07:10 Weight: 100 kg - Exam General: Alert, Cooperative. No: Oriented HEENT: Conjunctiva Clear, Mucosa Moist & [place], Posterior Pharynx Clear Lungs: Clear to Auscultation, Normal Respiratory Effort Cardiovascular: Regular Rate, Regular Rhythm GI/Abdominal Exam: Normal Bowel Sounds, Soft, Non-Tender Extremities: Normal Inspection, Normal Range of Motion, Non-Tender, No Pedal Edema Neuro Extensive - Mental Status: Alert, Normal Cognition. No: Oriented x3 (per baseline.) Psychiatric: Alert, Normal Affect, Normal Mood - Patient Data Lab Results Last 24 hrs: Laboratory Results - last 24 hr 05/07/19 05/07/19 05/07/19 Range/Units 01:25 01:25 01:25 WBC 21.49 H (4.0-11.0) K/uL RBC 3.59 L (4.30-5.90) M/uL Hgb 11.6 L (12.0-16.0) g/dL Hct 33.5 L (36.0-46.0) % MCV 93.3 (80.0-98.0) fL MCH 32.3 H (27.0-32.0) pg MCHC 34.6 (31.0-37.0) g/dL RDW Std Deviation 44.2 (28.0-62.0) fl RDW Coeff of Luc 14 (11.0-15.0) % Plt Count 321 (150-400) K/uL MPV 9.80 (7.40-12.00) fL Neut % (Auto) 81.8 H (48.0-80.0) % Lymph % (Auto) 10.7 L (16.0-40.0) % [place] % (Auto) 7.4 (0.0-15.0) % Eos % (Auto) 0.0 (0.0-7.0) % Baso % (Auto) 0.1 (0.0-1.5) % Neut # (Auto) 17.6 H (1.4-5.7) K/uL Lymph # (Auto) 2.3 (0.6-2.4) K/uL [place] # (Auto) 1.6 H (0.0-0.8) K/uL Eos # (Auto) 0.0 (0.0-0.7) K/uL Baso # (Auto) 0.0 (0.0-0.1) K/uL Lactate 1.4 (0.20-2.00) mmol/L Sodium 145 (136-145) mmol/L Potassium 4.5 (3.5-5.1) mmol/L Chloride 108 H (98-107) mmol/L Carbon Dioxide 27.8 (21.0-32.0) mmol/L BUN 38 H (7.0-18.0) mg/dL Creatinine 1.5 H (0.6-1.0) mg/dL Est Cr Clr Drug Dosing TNP Estimated GFR (MDRD) 33.5 ml/min Glucose 113 H (74-106) mg/dL Calcium 9.7 (8.5-10.1) mg/dL Total Bilirubin 0.4 (0.2-1.0) mg/dL AST 48 H (15-37) IU/L ALT 37 (14-63) IU/L Alkaline Phosphatase 37 L (46-116) U/L Total Protein 6.9 (6.4-8.2) g/dL Albumin 3.2 L (3.4-5.0) g/dL Globulin 3.7 (2.6-4.0) g/dL Albumin/Globulin Ratio 0.9 (0.9-1.6) Urine Color Urine Appearance Urine pH (5.0-8.0) Ur Specific [place] (1.001-1.035) Urine Protein (NEGATIVE) mg/dL Urine Glucose (UA) (NEGATIVE) mg/dL Urine Ketones (NEGATIVE) mg/dL Urine Occult Blood (NEGATIVE) Urine Nitrite (NEGATIVE) Urine Bilirubin (NEGATIVE) Urine Urobilinogen (<2.0) EU/dL Ur Leukocyte Esterase (NEGATIVE) Urine RBC (0-2/HPF) Urine WBC (0-5/HPF) Ur Epithelial Cells (NONE-FEW) Urine Bacteria (NEGATIVE) 05/07/19 Range/Units 01:42 WBC (4.0-11.0) K/uL RBC (4.30-5.90) M/uL Hgb (12.0-16.0) g/dL Hct (36.0-46.0) % MCV (80.0-98.0) fL MCH (27.0-32.0) pg MCHC (31.0-37.0) g/dL RDW Std Deviation (28.0-62.0) fl RDW Coeff of Luc (11.0-15.0) % Plt Count (150-400) K/uL MPV (7.40-12.00) fL Neut % (Auto) (48.0-80.0) % Lymph % (Auto) (16.0-40.0) % [place] % (Auto) (0.0-15.0) % Eos % (Auto) (0.0-7.0) % Baso % (Auto) (0.0-1.5) % Neut # (Auto) (1.4-5.7) K/uL Lymph # (Auto) (0.6-2.4) K/uL [place] # (Auto) (0.0-0.8) K/uL Eos # (Auto) (0.0-0.7) K/uL Baso # (Auto) (0.0-0.1) K/uL Lactate (0.20-2.00) mmol/L Sodium (136-145) mmol/L Potassium (3.5-5.1) mmol/L Chloride (98-107) mmol/L Carbon Dioxide (21.0-32.0) mmol/L BUN (7.0-18.0) mg/dL Creatinine (0.6-1.0) mg/dL Est Cr Clr Drug Dosing Estimated GFR (MDRD) ml/min Glucose (74-106) mg/dL Calcium (8.5-10.1) mg/dL Total Bilirubin (0.2-1.0) mg/dL AST (15-37) IU/L ALT (14-63) IU/L Alkaline Phosphatase (46-116) U/L Total Protein (6.4-8.2) g/dL Albumin (3.4-5.0) g/dL Globulin (2.6-4.0) g/dL Albumin/Globulin Ratio (0.9-1.6) Urine Color YELLOW Urine Appearance HAZY Urine pH 6.0 (5.0-8.0) Ur Specific [place] 1.020 (1.001-1.035) Urine Protein NEGATIVE (NEGATIVE) mg/dL Urine Glucose (UA) NEGATIVE (NEGATIVE) mg/dL Urine Ketones NEGATIVE (NEGATIVE) mg/dL Urine Occult Blood NEGATIVE (NEGATIVE) Urine Nitrite NEGATIVE (NEGATIVE) Urine Bilirubin NEGATIVE (NEGATIVE) Urine Urobilinogen 0.2 (<2.0) EU/dL Ur Leukocyte Esterase MODERATE H (NEGATIVE) Urine RBC 0-2 (0-2/HPF) Urine WBC 15-20 (0-5/HPF) Ur Epithelial Cells RARE (NONE-FEW) Urine Bacteria 3+ H (NEGATIVE) Result Diagrams: 05/07/19 01:25 05/07/19 01:25 EKG INTERPRETATION EKG Date: 05/07/19 Rhythm: NSR Rate (Beats/Min): 80 P-Wave: Present QRS: Normal ST-T: Normal QT: Normal Sepsis Event Note - Evaluation Sepsis Screening Result: No Definite Risk - Focused Exam Vital Signs: Vital Signs Temp Temp Pulse Resp BP Pulse Ox 05/07/19 07:10 97.2 F 75 18 118/60 94 L 05/07/19 03:43 97.1 F 64 17 134/62 92 L 05/07/19 03:00 99 F 05/07/19 02:30 68 20 116/51 L 95 05/07/19 01:49 100.2 F 05/07/19 01:35 92 L 05/07/19 01:28 99.1 F 73 22 H 116/63 89 L Date Exam was Performed: 05/07/19 Time Exam was Performed: 13:12 - Problem List (1) Sepsis due to urinary tract infection SNOMED Code(s): 297785232 ICD Code: A41.9 - SEPSIS, UNSPECIFIED ORGANISM; N39.0 - URINARY TRACT INFECTION, SITE NOT SPECIFIED Status: Acute Current Visit: No (2) Altered mental status SNOMED Code(s): 789902162 ICD Code: R41.82 - ALTERED MENTAL STATUS, UNSPECIFIED Status: Acute Current Visit: No Qualifiers: Altered mental status type: disorientation Qualified Code(s): R41.0 - Disorientation, unspecified (3) Dehydration SNOMED Code(s): 40405796 ICD Code: E86.0 - DEHYDRATION Status: Acute Priority: High Current Visit: No (4) Hx of breast cancer SNOMED Code(s): 154993246 ICD Code: Z85.3 - PERSONAL HISTORY OF MALIGNANT NEOPLASM OF BREAST Status: Chronic Current Visit: Yes (5) Parkinson disease SNOMED Code(s): 40887457 ICD Code: G20 - PARKINSON'S DISEASE Status: Chronic Current Visit: Yes (6) Behavior disorder SNOMED Code(s): 068048153 ICD Code: KCP9670 - Status: Chronic Priority: Medium Current Visit: No (7) Dementia SNOMED Code(s): 20253124 ICD Code: F03.90 - UNSPECIFIED DEMENTIA WITHOUT BEHAVIORAL DISTURBANCE Status: Chronic Priority: High Current Visit: No (8) Mobility impaired SNOMED Code(s): 22816090 ICD Code: Z74.09 - OTHER REDUCED MOBILITY Status: Chronic Priority: High Current Visit: No Problem List Initiated/Reviewed/Updated: Yes Orders Last 24hrs: Active Orders 24 hr Category Date Time Status Admission Status [Patient Status] [ADT] Stat ADT 05/07/19 02:36 Active Intake and Output [RC] QSHIFT Care 05/07/19 07:53 Ordered Nursing Bedside Swallow Screen [RC] ASDIRECTED Care 05/07/19 05:24 Active Oxygen Therapy [RC] ASDIRECTED Care 05/07/19 05:24 Active Up ad [place] [RC] ASDIRECTED Care 05/07/19 05:24 Active VTE/DVT Education [RC] PER UNIT ROUTINE Care 05/07/19 07:53 Ordered Vital Signs [RC] Q4H Care 05/07/19 07:53 Ordered [employer] WORK[employer] Evaluation and Treatment [CONS] Routine Cons 05/07/19 05:24 Active BASIC METABOLIC PANEL,BMP [CHEM] AM Lab 05/08/19 05:11 Ordered BASIC METABOLIC PANEL,BMP [CHEM] AM Lab 05/09/19 05:11 Ordered BASIC METABOLIC PANEL,BMP [CHEM] AM Lab 05/10/19 05:11 Ordered CBC WITH AUTO DIFF [HEME] AM Lab 05/08/19 05:11 Ordered CBC WITH AUTO DIFF [HEME] AM Lab 05/09/19 05:11 Ordered CBC WITH AUTO DIFF [HEME] AM Lab 05/10/19 05:11 Ordered CULTURE BLOOD [BC] Stat Lab 05/07/19 01:25 Received CULTURE BLOOD [BC] Stat Lab 05/07/19 01:30 Received Acetaminophen [Tylenol] Med 05/07/19 07:53 Ordered 650 mg PO Q4H PRN Azithromycin [Zithromax] 500 mg Med 05/07/19 09:00 Active Sodium Chloride 0.9% [Normal Saline (AdvBag)] 250 ml IV DAILY Heparin Sodium Med 05/07/19 08:00 Ordered 5,000 units SUBCUT Q8H Ondansetron [Zofran] Med 05/07/19 07:53 Ordered 4 mg IVPUSH Q4H PRN Sodium Chloride 0.9% [Saline Flush] Med 05/07/19 01:29 Active 10 ml FLUSH ASDIRECTED PRN Sodium Chloride 0.9% [Saline Flush] Med 05/07/19 01:29 Active 2.5 ml FLUSH ASDIRECTED PRN Blood Culture x2 Reflex Set [OM.PC] Stat Ot 05/07/19 01:29 Ordered Saline Lock Insert [OM.PC] Stat Ot 05/07/19 01:29 Ordered Severe Sepsis Onset Time [OM.PC] Stat Ot 05/07/19 01:28 Ordered Severe Sepsis Onset Time [OM.PC] Stat Ot 05/07/19 01:29 Ordered Medication Orders Acetaminophen (Tylenol) 650 mg PO Q4H PRN PRN Reason: Pain (Mild 1-3)/fever Azithromycin 500 mg/ Sodium (Chloride) 250 mls @ 250 mls/hr IV DAILY MARC Sodium Chloride (Saline Flush) 10 ml FLUSH ASDIRECTED PRN PRN Reason: Keep Vein Open Sodium Chloride (Saline Flush) 2.5 ml FLUSH ASDIRECTED PRN PRN Reason: Keep Vein Open Assessment/Plan Comment:: This 79 year old female admitted with urosepsis 1. Urosepsis: - Continue Rocephin 1 gm IV daily - Hx of jackson sensitive E coli UTIs. - VS remain stable, no hypotension noted. - BC pending 2. Dehydration: -BUN/Cr elevated, will give gentle IVFs and recheck in am. - Hold nephrotoxic medications 3. AMS: -Likely secondary to UTI and dehydration. Will monitor. More alert this morning per nursing - Bedside swallow study to ensure safe to eat - ST consult due to dysphagia 4. Suspected aspiration PNA: - Treated with Rocephin and Azithromycin - 4. Dementia: - Restart Aricept - Restart all Home medications. VTE Prophylaxis: Heparin CODE Status: DNR/DNR- would like medications only. Dispo: 2 days - Mortality Measure Prognosis:: Good
[2019-05-07] MEDS: Sodium Chloride 0.9% 1,000 ML IV SCH (08:28)
[2019-05-07] MEDS: Azithromycin 500 MG in Sodium Chloride 0.9% 250 ML IV SCH (08:30)
[2019-05-07] MEDS: Heparin Sodium 5,000 Units/ML Vial SUBCUT SCH ×2 (08:31→16:00)
[2019-05-07] MEDS ORDERED: Bisacodyl 10 MG Supp RECTAL PRN (09:55)
[2019-05-07] MEDS: Donepezil 10 MG Tab PO SCH ×2 (10:26→20:16)
[2019-05-07] MEDS: Diazepam 5 MG Tab PO SCH ×2 (10:26→20:16)
--- NOTE | 2019-05-07 11:02 | CT ---
CT abdomen and pelvis Technique: Multiple axial sections were obtained from slightly below the top of the liver inferiorly through the pubic symphysis. Intravenous and oral contrast not utilized. Study has been performed as a ureteral stone protocol. Findings: Consolidation is seen within both lung bases, worse on the right side. Without previous study, uncertain if this is chronic or due to infectious change. Low-density lesion is noted within the left lobe of the liver measuring 4.1 cm which has Hounsfield unit measurements of the cyst. Smaller low-density finding is also noted within the left lobe of the liver measuring 1.7 cm which also has Hounsfield unit measurements of a cyst. No additional abnormality is seen within the liver. Single large calcified gallstone is noted within the gallbladder measuring 1.4 cm. Pancreas shows no discrete abnormality. Spleen appears within normal limits. Adrenal glands show no nodule. Aorta shows atherosclerotic calcification which continues into the iliac vessels. No retroperitoneal adenopathy is seen. No mesenteric abnormalities are noted. Small fat-containing umbilical hernia is noted. No pelvic mass or adenopathy is seen. Slight increased stool is noted within the colon. Kidney show no abnormal calcifications. No ureteral stone or ureteral dilatation is seen. Bone window settings were reviewed. Scattered degenerative change is seen throughout the spine most severe at L4-L5. Impression: 1. No renal calculi, ureteral dilatation or ureteral stone is seen. 2. Increased density within both lung bases. As mentioned above, uncertain if this represents infectious change or is due to chronic change without previous studies. 3. Other findings as described above. Nothing acute is otherwise seen. Diagnostic code #3 This report was dictated in [place] Standard Time
[2019-05-07] MEDS ORDERED: Sodium Chloride 0.9% 500 ML IV STA (13:49)
[2019-05-07] MEDS ORDERED: Tamsulosin 0.4 MG Cap.ER PO ONE (18:38)
[2019-05-07] MEDS ORDERED: Phenazopyridine 200 MG Tab PO PRN (18:38)
[2019-05-07] MEDS: Gabapentin 300 MG Cap PO SCH (20:16)
[2019-05-07] MEDS: Docusate Sodium 100 MG Cap PO SCH (20:16)
[2019-05-07] MEDS ORDERED: LORazepam 2 MG/ML SDV IVPUSH PRN (21:36)
[2019-05-07] MEDS ORDERED: traMADol 50 MG Tab PO SCH (21:45)
[2019-05-08] MEDS: Heparin Sodium 5,000 Units/ML Vial SUBCUT SCH ×3 (00:02→15:27)
[2019-05-08] MEDS: cefTRIAXone 1 GM in Premix Bag 1 BAG IV SCH (00:02)
[2019-05-08] MEDS: Sodium Chloride 0.9% 1,000 ML IV SCH (03:53)
[2019-05-08 06:05] LABS: BLOOD UREA NITROGEN,BUN 24 mg/dL (7.0-18.0); CHLORIDE,CL 111 mmol/L (98-107); GLUCOSE RANDOM 78 mg/dL (74-106); POTASSIUM,K 3.5 mmol/L (3.5-5.1); SODIUM,NA 146 mmol/L (136-145)
[2019-05-08] MEDS ORDERED: Tamsulosin 0.4 MG Cap.ER PO SCH (08:30)
--- NOTE | 2019-05-08 08:45 | PCM.PN ---
- General Info Date of Service: 05/08/19 Admission Dx/Problem (Free Text): Admission Diagnosis/Problem Admission Diagnosis/Problem Urosepsis Subjective Update: Much more alert and talkative today. Denies pain, reports she has to urinate ( [place] reports, she says this constantly at [place]). No shortness of breath, no abdominal pain. Functional Status: Reports: Pain Controlled, Tolerating Diet - Review of Systems General: Reports: No Symptoms. Denies: Fatigue Pulmonary: Reports: No Symptoms. Denies: Shortness of Breath Cardiovascular: Reports: No Symptoms. Denies: Chest Pain Gastrointestinal: Reports: No Symptoms. Denies: Abdominal Pain, Diarrhea, Nausea, Vomiting Genitourinary: Reports: Frequency Musculoskeletal: Reports: No Symptoms Neurological: Reports: No Symptoms Psychiatric: Reports: No Symptoms - Patient Data Vitals - Most Recent: Last Vital Signs Temp 97.4 F 05/08/19 07:10 Pulse 71 05/08/19 07:10 Resp 18 05/08/19 07:10 BP 111/49 L 05/08/19 07:10 Pulse Ox 94 L 05/08/19 07:10 Weight - Most Recent: 100 kg I&O - Last 24 Hours: Intake & Output 05/07/19 05/08/19 05/08/19 22:59 06:59 14:59 Intake Total 1267 1000 Output Total 450 429 Balance 817 571 Lab Results Last 24 Hours: Laboratory Results - last 24 hr 05/08/19 05/08/19 Range/Units 05:38 05:38 WBC 13.61 H (4.0-11.0) K/uL RBC 3.36 L (4.30-5.90) M/uL Hgb 10.5 L (12.0-16.0) g/dL Hct 32.2 L (36.0-46.0) % MCV 95.8 (80.0-98.0) fL MCH 31.3 (27.0-32.0) pg MCHC 32.6 (31.0-37.0) g/dL RDW Std Deviation 50.5 (28.0-62.0) fl RDW Coeff of Luc 14 (11.0-15.0) % Plt Count 248 (150-400) K/uL MPV 9.10 (7.40-12.00) fL Neut % (Auto) 77.0 (48.0-80.0) % Lymph % (Auto) 14.8 L (16.0-40.0) % Woodward % (Auto) 7.4 (0.0-15.0) % Eos % (Auto) 0.7 (0.0-7.0) % Baso % (Auto) 0.1 (0.0-1.5) % Neut # (Auto) 10.5 H (1.4-5.7) K/uL Lymph # (Auto) 2.0 (0.6-2.4) K/uL Woodward # (Auto) 1.0 H (0.0-0.8) K/uL Eos # (Auto) 0.1 (0.0-0.7) K/uL Baso # (Auto) 0.0 (0.0-0.1) K/uL Nucleated RBC % 0.0 /100WBC Nucleated RBCs # 0 K/uL Sodium 146 H (136-145) mmol/L Potassium 3.5 (3.5-5.1) mmol/L Chloride 111 H (98-107) mmol/L Carbon Dioxide 24.0 (21.0-32.0) mmol/L BUN 24 H (7.0-18.0) mg/dL Creatinine 0.9 (0.6-1.0) mg/dL Est Cr Clr Drug Dosing TNP Estimated GFR (MDRD) > 60.0 ml/min Glucose 78 (74-106) mg/dL Calcium 8.7 (8.5-10.1) mg/dL Nikita Results Last 24 Hours: Microbiology 05/07/19 01:30 Aerobic Blood Culture - Preliminary Blood - Venous - Lab Draw NO GROWTH AFTER 1 DAY Anaerobic Blood Culture - Preliminary NO GROWTH AFTER 1 DAY 05/07/19 01:25 Aerobic Blood Culture - Preliminary Blood - Venous NO GROWTH AFTER 1 DAY Anaerobic Blood Culture - Preliminary NO GROWTH AFTER 1 DAY Med Orders - Current: Current Medications Acetaminophen (Tylenol) 650 mg PO Q4H PRN PRN Reason: Pain (Mild 1-3)/fever Last Admin: 05/07/19 19:41 Dose: 650 mg Aspirin (Aspirin) 81 mg PO DAILY [facility] Bisacodyl (Dulcolax) 10 mg RECTAL Q24H PRN PRN Reason: Constipation Diazepam (Valium.) 5 mg PO BID [facility] Last Admin: 05/07/19 20:16 Dose: 5 mg Docusate Sodium (Colace) 100 mg PO BID [facility] Last Admin: 05/07/19 20:16 Dose: 100 mg Donepezil HCl (Aricept) 10 mg PO BID [facility] Last Admin: 05/07/19 20:16 Dose: 10 mg Fluoxetine HCl (Prozac) 40 mg PO DAILY [facility] Gabapentin (Neurontin) 300 mg PO BID [facility] Last Admin: 05/07/19 20:16 Dose: 300 mg Heparin Sodium (Porcine) (Heparin Sodium) 5,000 units SUBCUT Q8H [facility] Last Admin: 05/08/19 00:02 Dose: 5,000 units Azithromycin 500 mg/ Sodium (Chloride) 250 mls @ 250 mls/hr IV DAILY [facility] Last Admin: 05/07/19 08:30 Dose: 250 mls/hr Ceftriaxone Sodium/Dextrose 1 (gm/ Premix) 50 mls @ 100 mls/hr IV Q24H [facility] Last Admin: 05/08/19 00:02 Dose: 100 mls/hr Nystatin (Nystop) 0 gm TOP TID [facility] Ondansetron HCl (Zofran) 4 mg IVPUSH Q4H PRN PRN Reason: Nausea Phenazopyridine HCl (Pyridium) 100 mg PO DAILY PRN PRN Reason: Other Sodium Chloride (Saline Flush) 10 ml FLUSH ASDIRECTED PRN PRN Reason: Keep Vein Open Sodium Chloride (Saline Flush) 2.5 ml FLUSH ASDIRECTED PRN PRN Reason: Keep Vein Open Tamsulosin HCl (Flomax) 0.4 mg PO PCBREAKFAST [facility] Discontinued Medications Sodium Chloride (Normal Saline) 1,000 mls @ 1,000 mls/hr IV .Bolus ONE Stop: 05/07/19 02:28 Last Admin: 05/07/19 01:46 Dose: 1,000 mls/hr Ceftriaxone Sodium 1 gm/ (Sodium Chloride) 50 mls @ 100 mls/hr IV ONETIME ONE Stop: 05/07/19 02:38 Last Admin: 05/07/19 02:30 Dose: Not Given Ciprofloxacin/Dextrose 400 mg/ (Premix) 200 mls @ 200 mls/hr IV Q12H STA Stop: 05/07/19 03:09 Last Admin: 05/07/19 02:33 Dose: 200 mls/hr Ceftriaxone Sodium/Dextrose 1 (gm/ Premix) 50 mls @ 100 mls/hr IV ONETIME ONE Stop: 05/07/19 02:49 Last Admin: 05/07/19 02:29 Dose: 100 mls/hr Sodium Chloride (Normal Saline) Confirm Administered Dose 50 mls @ as directed .ROUTE .STK-MED ONE Stop: 05/07/19 02:21 Last Admin: 05/07/19 02:30 Dose: Not Given Ciprofloxacin/Dextrose (Cipro In D5w 400 Mg/200 Ml) Confirm Administered Dose 200 mls @ as directed .ROUTE .STK-MED ONE Stop: 05/07/19 02:22 Last Admin: 05/07/19 02:30 Dose: Not Given Sodium Chloride (Normal Saline) 1,000 mls @ 50 mls/hr IV Q20H [facility] Last Admin: 05/08/19 03:53 Dose: 50 mls/hr Sodium Chloride (Normal Saline) 500 mls @ 500 mls/hr IV NOW STA Stop: 05/07/19 14:48 Last Admin: 05/07/19 13:55 Dose: 500 mls/hr Tamsulosin HCl (Flomax) 0.4 mg PO ONETIME ONE Stop: 05/07/19 18:39 Last Admin: 05/07/19 18:48 Dose: 0.4 mg - Exam General: Alert, Cooperative, No Acute Distress. No: Oriented Lungs: Clear to Auscultation, Normal Respiratory Effort Cardiovascular: Regular Rate, Regular Rhythm GI/Abdominal Exam: Normal Bowel Sounds, Soft, Non-Tender Extremities: Normal Inspection, Normal Range of Motion, Non-Tender, No Pedal Edema Neurological: No New Focal Deficit Psy/Mental Status: Alert, Normal Affect, Normal Mood Sepsis Event Note - Evaluation Sepsis Screening Result: No Definite Risk - Focused Exam Vital Signs: Vital Signs Temp Pulse Resp BP Pulse Ox 05/08/19 07:10 97.4 F 71 18 111/49 L 94 L 05/08/19 03:00 98.7 F 65 18 144/60 H 95 05/07/19 23:00 100.0 F 90 18 115/56 L 91 L Date Exam was Performed: 05/08/19 Time Exam was Performed: 09:56 - Problem List & Annotations (1) Sepsis due to urinary tract infection SNOMED Code(s): 040621541 Code(s): A41.9 - SEPSIS, UNSPECIFIED ORGANISM; N39.0 - URINARY TRACT INFECTION, SITE NOT SPECIFIED Status: Resolved Current Visit: No (2) Altered mental status SNOMED Code(s): 633546009 Code(s): R41.82 - ALTERED MENTAL STATUS, UNSPECIFIED Status: Resolved Current Visit: No Qualifiers: Altered mental status type: disorientation Qualified Code(s): R41.0 - Disorientation, unspecified (3) Dehydration SNOMED Code(s): 12299188 Code(s): E86.0 - DEHYDRATION Status: Acute Priority: High Current Visit : No (4) Hx of breast cancer SNOMED Code(s): 935991631 Code(s): Z85.3 - PERSONAL HISTORY OF MALIGNANT NEOPLASM OF BREAST Status: Chronic Current Visit: Yes (5) Parkinson disease SNOMED Code(s): 28181557 Code(s): G20 - PARKINSON'S DISEASE Status: Chronic Current Visit: Yes (6) Behavior disorder SNOMED Code(s): 714816540 Code(s): TVO6259 - Status: Chronic Priority: Medium Current Visit: No (7) Dementia SNOMED Code(s): 70389534 Code(s): F03.90 - UNSPECIFIED DEMENTIA WITHOUT BEHAVIORAL DISTURBANCE Status: Chronic Priority: High Current Visit: No (8) Mobility impaired SNOMED Code(s): 03580095 Code(s): Z74.09 - OTHER REDUCED MOBILITY Status: Chronic Priority: High Current Visit: No - Problem List Review Problem List Initiated/Reviewed/Updated: Yes - My Orders Last 24 Hours: My Active Orders 05/07/19 07:53 Intake and Output [RC] Q12H VTE/DVT Education [RC] PER UNIT ROUTINE Vital Signs [RC] Q4H Acetaminophen [Tylenol] 650 mg PO Q4H PRN Ondansetron [Zofran] 4 mg IVPUSH Q4H PRN 05/07/19 07:59 Resuscitation Status Routine 05/07/19 08:00 Heparin Sodium 5,000 units SUBCUT Q8H 05/07/19 09:55 bisacodyL [Dulcolax] 10 mg RECTAL Q24H PRN 05/07/19 10:00 Donepezil [Aricept] 10 mg PO BID diazePAM [Valium] 5 mg PO BID 05/07/19 15:17 Urinary Catheter Assessment [RC] ASDIRECTED 05/07/19 15:30 Insert Urinary Catheter [OM.PC] Q24H 05/07/19 21:00 Docusate Sodium [Colace] 100 mg PO BID Gabapentin [Neurontin] 300 mg PO BID 05/08/19 00:30 cefTRIAXone [Rocephin in Dextrose,Iso-Osm 1 GM/50 ML] 1 gm Premix Bag 1 bag IV Q24H 05/08/19 09:00 Aspirin 81 mg PO DAILY FLUoxetine [PROzac] 40 mg PO DAILY 05/08/19 14:00 Nystatin [Nystop] See Dose Instructions TOP TID 05/09/19 05:11 BASIC METABOLIC PANEL,BMP [CHEM] AM CBC WITH AUTO DIFF [HEME] AM 05/10/19 05:11 BASIC METABOLIC PANEL,BMP [CHEM] AM CBC WITH AUTO DIFF [HEME] AM - Plan Plan:: This 79 year old female admitted with urosepsis 1. UTI: - sepsis resolved. - Continue Rocephin 1 gm IV daily, awaiting cultures. - Hx of jackson sensitive E coli UTIs. - VS remain stable, no hypotension noted. - BC pending 2. Dehydration: - BUN/Cr elevated improved today. Stop IVFs. - Hold nephrotoxic medications 3. AMS: Resolved. - Likely secondary to UTI and dehydration. - Back to baseline. 4. Suspected aspiration PNA: - Treating with Rocephin and Azithromycin 5. Dementia: - Continue Aricept - Continue Home medications. VTE Prophylaxis: Heparin CODE Status: DNR/DNR- would like medications only. Dispo: back to [facility] in am if cultures available.
[2019-05-08] MEDS: FLUoxetine 20 MG Cap PO SCH (09:01)
[2019-05-08] MEDS: Docusate Sodium 100 MG Cap PO SCH ×2 (09:02→22:16)
[2019-05-08] MEDS: Gabapentin 300 MG Cap PO SCH ×2 (09:02→22:16)
[2019-05-08] MEDS: Aspirin 81 MG Tab.Chew PO SCH (09:02)
[2019-05-08] MEDS: Diazepam 5 MG Tab PO SCH ×2 (09:02→22:16)
[2019-05-08] MEDS: Donepezil 10 MG Tab PO SCH ×2 (09:02→22:16)
[2019-05-08] MEDS: Azithromycin 500 MG in Sodium Chloride 0.9% 250 ML IV SCH (09:03)
[2019-05-08] MEDS: Nystatin Topical Powder 15 GM Bottle TOP SCH ×2 (13:34→22:17)
[2019-05-08] MEDS ORDERED: OLANZapine 5 MG Tab PO SCH (21:00)
[2019-05-09] MEDS: Heparin Sodium 5,000 Units/ML Vial SUBCUT SCH ×2 (00:42→08:41)
[2019-05-09] MEDS: cefTRIAXone 1 GM in Premix Bag 1 BAG IV SCH (00:44)
[2019-05-09] MEDS: Nystatin Topical Powder 15 GM Bottle TOP SCH (05:56)
[2019-05-09 06:37] LABS: BLOOD UREA NITROGEN,BUN 16 mg/dL (7.0-18.0); CARBON DIOXIDE,CO2 24.3 mmol/L (21.0-32.0); CHLORIDE,CL 111 mmol/L (98-107); GLUCOSE RANDOM 93 mg/dL (74-106); POTASSIUM,K 3.6 mmol/L (3.5-5.1); SODIUM,NA 146 mmol/L (136-145)
[2019-05-09] MEDS: Azithromycin 500 MG in Sodium Chloride 0.9% 250 ML IV SCH (08:37)
[2019-05-09] MEDS: Donepezil 10 MG Tab PO SCH (08:41)
[2019-05-09] MEDS: Aspirin 81 MG Tab.Chew PO SCH (08:41)
[2019-05-09] MEDS: Diazepam 5 MG Tab PO SCH (08:42)
[2019-05-09] MEDS: Gabapentin 300 MG Cap PO SCH (08:42)
[2019-05-09] MEDS: Docusate Sodium 100 MG Cap PO SCH (08:42)
[2019-05-09] MEDS: FLUoxetine 20 MG Cap PO SCH (08:42)
[2019-05-09] MEDS ORDERED: Sodium Chloride 0.65% Nasal Spray 45 ML Bottle NAS SCH ×2 (08:45→09:45)
--- NOTE | 2019-05-09 10:15 | PCM.DCSUM1 ---
Discharge Summary - Hospital Course Brief History: This 79 year old female with pmh of R breast mastectomy d/t breast ca, dementia, HLD, Parkinson's disease and IBS presented to the ED from [facility] with complaints of a change in mental status. There was concern for aspiration, after she was noted to choke on food yesterday morning. She is unable to give any history. All history obtained from [employer] paperwork. She was noted to have mild elevation in temps at [employer] as well. In the ED leukocytosis noted at 21,490, hbg 11.6, Hct 33.5, Na 145, K+ 4.5, lactic acid 1.4, BUN 38 and Cr 1.5 Ua revealed +3 bacteria, moderate leukocyte esterase, pyuria 15-20, CXR revealed possible opacity L lung base and mild cardiomegaly noted. BP have been stable 110-130/60-70s, temps 99-100.4., 2 L NC. In the ED she was treated with 1 L NS as well as Rocephin and Ciprofloxacin. She will be admitted for Urosepsis. Diagnosis: Stroke: No - Discharge Data Discharge Date: 05/09/19 Discharge Disposition: DC/Tfer to SNF 03 Condition: Good - Referral to Home Health Primary Care Physician: PCP None - Discharge Diagnosis/Problem(s) (1) Sepsis due to urinary tract infection SNOMED Code(s): 497331517 ICD Code: A41.9 - SEPSIS, UNSPECIFIED ORGANISM; N39.0 - URINARY TRACT INFECTION, SITE NOT SPECIFIED Status: Resolved Current Visit: No (2) Altered mental status SNOMED Code(s): 873267064 ICD Code: R41.82 - ALTERED MENTAL STATUS, UNSPECIFIED Status: Resolved Current Visit: No Qualifiers: Altered mental status type: disorientation Qualified Code(s): R41.0 - Disorientation, unspecified (3) Dehydration SNOMED Code(s): 06029484 ICD Code: E86.0 - DEHYDRATION Status: Acute Priority: High Current Visit: No (4) Hx of breast cancer SNOMED Code(s): 014058028 ICD Code: Z85.3 - PERSONAL HISTORY OF MALIGNANT NEOPLASM OF BREAST Status: Chronic Current Visit: Yes (5) Parkinson disease SNOMED Code(s): 76110190 ICD Code: G20 - PARKINSON'S DISEASE Status: Chronic Current Visit: Yes (6) Behavior disorder SNOMED Code(s): 514861582 ICD Code: LWI2605 - Status: Chronic Priority: Medium Current Visit: No (7) Dementia SNOMED Code(s): 78348503 ICD Code: F03.90 - UNSPECIFIED DEMENTIA WITHOUT BEHAVIORAL DISTURBANCE Status: Chronic Priority: High Current Visit: No (8) Mobility impaired SNOMED Code(s): 29499169 ICD Code: Z74.09 - OTHER REDUCED MOBILITY Status: Chronic Priority: High Current Visit: No - Patient Summary/Data Consults: Consultations 05/07/19 05:24 [employer] Evaluation and Treatment [CONS] Routine - Patient Instructions Diet: Pureed (nectar thick liquids) Activity: As Tolerated Showering/Bathing: May Shower Notify Provider of: Fever, Increased Pain, Swelling and Redness, Drainage, Nausea and/or Vomiting Other/Special Instructions: PT/OT/ST to evaluate and treat. Oxygen 1 L NC to keep sats at 90% - Discharge Plan *PRESCRIPTION DRUG MONITORING PROGRAM REVIEWED*: Not Applicable *COPY OF PRESCRIPTION DRUG MONITORING REPORT IN PATIENT JULIANNA: Not Applicable Prescriptions/Med Rec: Azithromycin 500 mg PO DAILY #3 tablet Cefdinir 300 mg PO BID #12 capsule diazePAM [Valium] 5 mg PO BID #10 tablet Nystatin [Nystop] 10,000 units TOP TID #1 bottle traMADol HCl [Tramadol HCl] 50 mg PO BID #10 tablet Home Medications: Home Meds Aspirin 81 mg PO DAILY 11/03/14 [History] Calcium Carb, Citrate/Vit D3 [Citracal + D ER] 1 tab PO DAILY 11/03/14 [History] Donepezil HCl [Aricept] 10 mg PO BID 11/03/14 [History] Gabapentin 300 mg PO BID 11/03/14 [History] Magnesium Hydroxide [Milk of Magnesia] 30 ml PO DAILY PRN 11/03/14 [History] Acetaminophen 1,000 mg PO TID PRN 05/14/17 [History] Docusate Sodium 100 mg PO BID 05/14/17 [History] atorvaSTATin Calcium [Atorvastatin Calcium] 10 mg PO BEDTIME 05/14/17 [History] bisacodyL [Dulcolax] 10 mg RC Q24H PRN 05/14/17 [History] polyethylene glycoL 3350 [MiraLAX] 17 gm PO BID 05/14/17 [History] Fluticasone Propionate [Flonase Allergy Relief] 1 puff NASBOTH DAILY 05/07/19 [ History] OLANZapine [ZyPREXA] 20 mg PO BEDTIME 05/07/19 [History] Phenazopyridine HCl [Urinary Pain Relief] 1 tab PO DAILY PRN MDD Bladder complaints 05/07/19 [History] Azithromycin 500 mg PO DAILY #3 tablet 05/09/19 [Rx] Cefdinir 300 mg PO BID #12 capsule 05/09/19 [Rx] Nystatin [Nystop] 10,000 units TOP TID #1 bottle 05/09/19 [Rx] diazePAM [Valium] 5 mg PO BID #10 tablet 05/09/19 [Rx] traMADol HCl [Tramadol HCl] 50 mg PO BID #10 tablet 05/09/19 [Rx] Oxygen Therapy Mode: Nasal Cannula Oxygen Flow Rate (L/min): 1 Maintain SpO2% greater than: 90 Patient Handouts: Nystatin tablets, Cefdinir capsules, Tramadol tablets, Azithromycin tablets, Urosepsis, Diazepam tablets Referrals: August Rebolledo MD [Physician] - 05/25/19 (Please schedule with the next [facility] rounds ) - Discharge Summary/Plan Comment DC Time >30 min.: No Discharge Summary/Plan Comment: Admitting Diagnoses: Urosepsis Aspiration pneumonia- suspected Discharge Diagnoses: Urosepsis- resolved UTI Aspiration pneumonia Other PMH: Dementia Parkinson's Lindy was admitted secondary to urosepsis, she was treated with Rocephin. CXr noted possible bilateral lower lobe pneumonia, she was kept on Azithromycin as well. There was a choking/aspiration event prior to admission. Suspected aspiration pneumonia. She was evaluated by ST, who felt pureed and nectar thick liquids for now and then recommends follow up with [facility] when radiology is available in the next couple weeks. She steadily improved, today leukocytosis is nearly resolved, 11,000 today. BC negative. She will be sent home with Cefdinir and Azithromycin for UTI and aspiration pneumonia. She is to follow up with PCP in 1 week, return to clinic or ED sooner if concerns. - Patient Data Vitals - Most Recent: Last Vital Signs Temp 98.2 F 05/09/19 08:00 Pulse 77 05/09/19 08:00 Resp 18 05/09/19 08:00 BP 157/66 H 05/09/19 08:00 Pulse Ox 92 L 05/09/19 08:00 Weight - Most Recent: 100 kg I&O - Last 24 hours: Intake & Output 05/08/19 05/09/19 05/09/19 22:59 06:59 14:59 Intake Total 885 290 Output Total 847 Balance 885 -557 Lab Results - Last 24 hrs: Laboratory Results - last 24 hr 05/09/19 05/09/19 Range/Units 05:59 05:59 WBC 11.55 H (4.0-11.0) K/uL RBC 3.40 L (4.30-5.90) M/uL Hgb 10.7 L (12.0-16.0) g/dL Hct 31.9 L (36.0-46.0) % MCV 93.8 (80.0-98.0) fL MCH 31.5 (27.0-32.0) pg MCHC 33.5 (31.0-37.0) g/dL RDW Std Deviation 47.9 (28.0-62.0) fl RDW Coeff of Luc 14 (11.0-15.0) % Plt Count 261 (150-400) K/uL MPV 9.80 (7.40-12.00) fL Neut % (Auto) 78.0 (48.0-80.0) % Lymph % (Auto) 12.6 L (16.0-40.0) % [place] % (Auto) 7.9 (0.0-15.0) % Eos % (Auto) 1.2 (0.0-7.0) % Baso % (Auto) 0.3 (0.0-1.5) % Neut # (Auto) 9.0 H (1.4-5.7) K/uL Lymph # (Auto) 1.5 (0.6-2.4) K/uL [place]cock # (Auto) 0.9 H (0.0-0.8) K/uL Eos # (Auto) 0.1 (0.0-0.7) K/uL Baso # (Auto) 0.0 (0.0-0.1) K/uL Nucleated RBC % 0.0 /100WBC Nucleated RBCs # 0 K/uL Sodium 146 H (136-145) mmol/L Potassium 3.6 (3.5-5.1) mmol/L Chloride 111 H (98-107) mmol/L Carbon Dioxide 24.3 (21.0-32.0) mmol/L BUN 16 (7.0-18.0) mg/dL Creatinine 0.8 (0.6-1.0) mg/dL Est Cr Clr Drug Dosing TNP Estimated GFR (MDRD) > 60.0 ml/min Glucose 93 (74-106) mg/dL Calcium 8.7 (8.5-10.1) mg/dL TRACEY Results - Last 24 hrs: Microbiology 05/07/19 01:30 Aerobic Blood Culture - Preliminary Blood - Venous - Lab Draw NO GROWTH AFTER 2 DAYS Anaerobic Blood Culture - Preliminary NO GROWTH AFTER 2 DAYS 05/07/19 01:25 Aerobic Blood Culture - Preliminary Blood - Venous NO GROWTH AFTER 2 DAYS Anaerobic Blood Culture - Preliminary NO GROWTH AFTER 2 DAYS Med Orders - Current: Current Medications Acetaminophen (Tylenol) 650 mg PO Q4H PRN PRN Reason: Pain (Mild 1-3)/fever Last Admin: 05/07/19 19:41 Dose: 650 mg Aspirin (Aspirin) 81 mg PO DAILY [facility] Last Admin: 05/09/19 08:41 Dose: 81 mg Bisacodyl (Dulcolax) 10 mg RECTAL Q24H PRN PRN Reason: Constipation Diazepam (Valium.) 5 mg PO BID [facility] Last Admin: 05/09/19 08:42 Dose: 5 mg Docusate Sodium (Colace) 100 mg PO BID [facility] Last Admin: 05/09/19 08:42 Dose: 100 mg Donepezil HCl (Aricept) 10 mg PO BID [facility] Last Admin: 05/09/19 08:41 Dose: 10 mg Fluoxetine HCl (Prozac) 40 mg PO DAILY [facility] Last Admin: 05/09/19 08:42 Dose: 40 mg Gabapentin (Neurontin) 300 mg PO BID [facility] Last Admin: 05/09/19 08:42 Dose: 300 mg Heparin Sodium (Porcine) (Heparin Sodium) 5,000 units SUBCUT Q8H [facility] Last Admin: 05/09/19 08:41 Dose: 5,000 units Azithromycin 500 mg/ Sodium (Chloride) 250 mls @ 250 mls/hr IV DAILY [facility] Last Admin: 05/09/19 08:37 Dose: 250 mls/hr Ceftriaxone Sodium/Dextrose 1 (gm/ Premix) 50 mls @ 100 mls/hr IV Q24H [facility] Last Admin: 05/09/19 00:44 Dose: 100 mls/hr Nystatin (Nystop) 0 gm TOP TID [facility] Last Admin: 05/09/19 05:56 Dose: 1 applic Ondansetron HCl (Zofran) 4 mg IVPUSH Q4H PRN PRN Reason: Nausea Phenazopyridine HCl (Pyridium) 100 mg PO DAILY PRN PRN Reason: Other Sodium Chloride (Saline Flush) 10 ml FLUSH ASDIRECTED PRN PRN Reason: Keep Vein Open Sodium Chloride (Saline Flush) 2.5 ml FLUSH ASDIRECTED PRN PRN Reason: Keep Vein Open Sodium Chloride (Mitchell Nasal Payne) 0 ml MISSY Q4H [facility] Last Admin: 05/09/19 09:42 Dose: 1 spr Discontinued Medications Sodium Chloride (Normal Saline) 1,000 mls @ 1,000 mls/hr IV .Bolus ONE Stop: 05/07/19 02:28 Last Admin: 05/07/19 01:46 Dose: 1,000 mls/hr Ceftriaxone Sodium 1 gm/ (Sodium Chloride) 50 mls @ 100 mls/hr IV ONETIME ONE Stop: 05/07/19 02:38 Last Admin: 05/07/19 02:30 Dose: Not Given Ciprofloxacin/Dextrose 400 mg/ (Premix) 200 mls @ 200 mls/hr IV Q12H [facility] Stop: 05/07/19 03:09 Last Admin: 05/07/19 02:33 Dose: 200 mls/hr Ceftriaxone Sodium/Dextrose 1 (gm/ Premix) 50 mls @ 100 mls/hr IV ONETIME ONE Stop: 05/07/19 02:49 Last Admin: 05/07/19 02:29 Dose: 100 mls/hr Sodium Chloride (Normal Saline) Confirm Administered Dose 50 mls @ as directed .ROUTE .STK-MED ONE Stop: 05/07/19 02:21 Last Admin: 05/07/19 02:30 Dose: Not Given Ciprofloxacin/Dextrose (Cipro In D5w 400 Mg/200 Ml) Confirm Administered Dose 200 mls @ as directed .ROUTE .STK-MED ONE Stop: 05/07/19 02:22 Last Admin: 05/07/19 02:30 Dose: Not Given Sodium Chloride (Normal Saline) 1,000 mls @ 50 mls/hr IV Q20H [facility] Last Admin: 05/08/19 03:53 Dose: 50 mls/hr Sodium Chloride (Normal Saline) 500 mls @ 500 mls/hr IV NOW STA Stop: 05/07/19 14:48 Last Admin: 05/07/19 13:55 Dose: 500 mls/hr Sodium Chloride (Mitchell Nasal Payne) 0 ml MISSY Q4H [facility] Tamsulosin HCl (Flomax) 0.4 mg PO PCBREAKFAST [facility] Last Admin: 05/08/19 09:07 Dose: Not Given Tamsulosin HCl (Flomax) 0.4 mg PO ONETIME ONE Stop: 05/07/19 18:39 Last Admin: 05/07/19 18:48 Dose: 0.4 mg
[2019-05-09 11:50] VITALS: BP 135/62; PULSE 65
== END 2019-05-09 13:00 | DRG 871 ==
LOC: MW.ED 01:24 → MW.MS 02:36
PROVIDERS: ADMIT Internal Medicine; ATTEND Internal Medicine
DX: Z41.9 Encounter for procedure for purposes other than remedying health state, unspecified (principal); A41.9 Sepsis, unspecified organism; J69.0 Pneumonitis due to inhalation of food and vomit; K58.9 Irritable bowel syndrome, unspecified; N39.0 Urinary tract infection, site not specified; E78.00 Pure hypercholesterolemia, unspecified; G20 Parkinson's disease; K21.9 Gastro-esophageal reflux disease without esophagitis; Z86.73 Personal history of transient ischemic attack (TIA), and cerebral infarction without residual deficits; F32.9 Major depressive disorder, single episode, unspecified; R39.82 Chronic bladder pain; E78.5 Hyperlipidemia, unspecified; M81.0 Age-related osteoporosis without current pathological fracture; M19.90 Unspecified osteoarthritis, unspecified site; G30.9 Alzheimer's disease, unspecified; F02.80 Dementia in other diseases classified elsewhere, unspecified severity, without behavioral disturbance, psychotic disturbance, mood disturbance, and anxiety; F41.9 Anxiety disorder, unspecified; F31.9 Bipolar disorder, unspecified; F60.9 Personality disorder, unspecified; E86.0 Dehydration; Z66 Do not resuscitate; Z74.09 Other reduced mobility; Z85.3 Personal history of malignant neoplasm of breast; Z88.5 Allergy status to narcotic agent; Z88.8 Allergy status to other drugs, medicaments and biological substances; Z79.82 Long term (current) use of aspirin; Z90.11 Acquired absence of right breast and nipple; Z79.899 Other long term (current) drug therapy
CPT/HCPCS: 36415; 71045; 80053; 81001; 83605; 85025; 87040 ×2; 96360; 96374; 99285; J0696; J0744; J7030; 51701; 74176; 74176-26; 80048; 92610-GN; 93005; A9270-GY; J0456; J1644; J7040; J7050

== ENCOUNTER 2021-03-09 15:07 | Emergency (ER) | payer MEDICARE, MEDICAID ==
[2021-03-09 15:35] VITALS: PULSE 58
[2021-03-09] MEDS ORDERED: Lidocaine 1% with EPINEPHrine 1:100,000 20 ML MDV INJECT ONE (18:13)
[2021-03-09 18:33] VITALS: BP 161/104
--- NOTE | 2021-03-09 18:44 | EDM.PDOC ---
ED HPI GENERAL MEDICAL PROBLEM - General Chief Complaint: Laceration Stated Complaint: FELL AND HIT HEAD Time Seen by Provider: 03/09/21 17:54 - History of Present Illness INITIAL COMMENTS - FREE TEXT/NARRATIVE: CHIEF COMPLAINT(S): Head injury with laceration HISTORY OF PRESENT ILLNESS: This is a 81-year-old woman with a past medical history of dementia who is a resident of [facility] who comes to the emergency department with a chief complaint of head injury with laceration. The patient states that she is feeling fine and denies any symptoms at all whatsoever. History is limited from patient given her history of dementia. Per caregiver at bedside the patient accidentally was trying to stand up and she fell forward hitting her head on the ground and cutting her forehead. She states that the patient did not have any loss of consciousness and has been acting at her baseline since that time. She states that the patient does not have any blood thinners on board. Denies any other injury. REVIEW OF SYSTEMS: Constitutional: Denies fever, chills. Eyes: Denies eye pain Ears, Nose, Mouth, & Throat: Denies earache Cardiovascular: Denies chest pain Respiratory: Denies shortness of breath Gastrointestinal: Denies Nausea, vomiting, diarrhea, hematochezia. Genitourinary: Denies hematuria Skin: Positive for laceration to forehead MSK: Denies joint pain Neurological: Denies blurred vision, headache, numbness, tingling, weakness Psychiatric: Denies depression PAST MEDICAL HISTORY: As per history of present illness and as reviewed below otherwise noncontributory. SURGICAL HISTORY: As per history of present illness and as reviewed below otherwise noncontributory. SOCIAL HISTORY: As per history of present illness and as reviewed below otherwise noncontributory. FAMILY HISTORY: As per history of present illness and as reviewed below otherwise noncontributory. EXAMINATION OF ORGAN SYSTEMS/BODY AREAS: Constitutional: Blood pressure is 133/63, heart rate 58, respiratory 18 with an oxygen saturation 96% on room air. Temperature 36.4 General: Well-appearing elderly woman in no acute distress Psychiatric: Appropriate mood and affect. Eyes: No scleral icterus or conjunctival erythema pupils were 3 mm and reactive bilaterally. ENMT: Moist mucous membranes. No pharyngeal erythema no blood in the oropharynx. No missing or chipped teeth. No stridor, drooling, trismus Cardiovascular: Regular, rate, and rhythm. No gallops, murmurs, or rubs. Bilateral upper extremity pulses symmetric and intact. No peripheral edema. No JVD. Respiratory: Lungs clear to auscultation bilaterally. No wheezes, rales, or rhonchi. Gastrointestinal: Soft, non-tender, non-distended. Normoactive bowel sounds Genitourinary: No suprapubic tenderness Musculoskeletal: Normal range of motion. Skin: There is a 1 cm anterior forehead scalp laceration without any active bleeding Neurological: Alert GCS of 15. Strength and sensation grossly intact in upper and lower extremities bilaterally MEDICAL DECISION MAKING AND COURSE IN THE ED WITH INTERPRETATION/REVIEW OF DIAGNOSTIC STUDIES: This is a 81-year-old woman with a past medical history of dementia who comes to the emergency department with forehead laceration after mechanical fall who overall appears well and has normal vital signs. At this time I do not believe any imaging is indicated. I did discuss strict return precautions with the caregiver at bedside. Will perform primary suture repair of the laceration. Laceration Repair Note Repair of the 1 cm anterior forehead wound was done by myself. Wound was irrigated well with saline. Local anesthesia with lidocaine was performed. No foreign bodies were noted. The wound was repaired with 2 6-0 directed nylon sutures. Wound edges approximated well. Bacitracin ointment and a sterile dressing were applied. DISPOSITION: The patient was discharged home in stable condition. The patient will follow up with primary care physician in 5 to 7 days for stitch removal CONDITION: Fair PROCEDURES: Laceration repair FINAL IMPRESSION(S)/DIAGNOSES: 1. Acute head injury 2. Acute forehead laceration status post suture repair Anders Duong M.D. head Pain Score (Numeric/FACES): 4 - Related Data Allergies Allergy/AdvReac Type Severity Reaction Status Date / Time codeine Allergy Nausea Verified 03/09/21 15:34 divalproex sodium Allergy Nausea Verified 03/09/21 15:34 [From Depakote] Home Meds: Home Meds Aspirin 81 mg PO DAILY 11/03/14 [History] Calcium Carb, Citrate/Vit D3 [Citracal + D ER] 1 tab PO DAILY 11/03/14 [History] Donepezil HCl [Aricept] 10 mg PO BID 11/03/14 [History] Gabapentin 300 mg PO BID 11/03/14 [History] Magnesium Hydroxide [Milk of Magnesia] 30 ml PO DAILY PRN 11/03/14 [History] Acetaminophen 1,000 mg PO TID PRN 05/14/17 [History] Docusate Sodium 100 mg PO BID 05/14/17 [History] polyethylene glycoL 3350 [MiraLAX] 17 gm PO DAILY 05/14/17 [History] Fluticasone Propionate [Flonase Allergy Relief] 1 spray NASBOTH DAILY 05/07/19 [History] OLANZapine [ZyPREXA] 20 mg PO BEDTIME 05/07/19 [History] Phenazopyridine HCl [Urinary Pain Relief] 200 mg PO DAILY MDD Bladder complaints 05/07/19 [History] traMADol HCl [Tramadol HCl] 50 mg PO BID #10 tablet 05/09/19 [Rx] Acetaminophen 1,000 mg PO TID 03/09/21 [History] Ascorbic Acid [C-1000] 2,000 mg PO TID 03/09/21 [History] FLUoxetine HCl [Fluoxetine HCl] 60 mg PO DAILY 03/09/21 [History] Memantine HCl [Namenda] 5 mg PO BEDTIME 03/09/21 [History] Sulfamethoxazole/Trimethoprim [Bactrim Ds Tablet] 1 tab PO BID MDD DAY 1 = 03/06/21 03/09/21 [History] diazePAM [Valium.] 2.5 mg PO BID 03/09/21 [History] Past Medical History HEENT History: Reports: Allergic Rhinitis Other HEENT History: unspecified sensoneural hearing loss, dysphagia oropharyngeal phase, dysphonia Cardiovascular History: Reports: High Cholesterol, Other (See Below) Other Cardiovascular History: atrioventricular block second degree Gastrointestinal History: Reports: GERD, Irritable Bowel Syndrome Genitourinary History: Reports: Other (See Below) Other Genitourinary History: chronic bladder pain 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 History: Reports: Musculoskeletal History: Reports: Back Pain, Chronic, Osteoarthritis Other Musculoskeletal History: generalized weakness, paralysis agitans Neurological History: Reports: Alzheimers Disease, Parkinson's, TIA, Other (See Below) Other Neuro History: Dementia, Psychiatric History: Reports: Alzheimers Disease, Anxiety, Bipolar, Dementia, Depression, OCD, Psych Hospitalization(s) Other Psychiatric History: personailyt disorder Endocrine/Metabolic History: Reports: Osteoporosis Other Endocrine/Metabolic History: hyperlipidemia Oncologic (Cancer) History: Reports: Breast Dermatologic History: Reports: Melanoma Other Dermatologic History: pruritus - Infectious Disease History Infectious Disease History: Reports: Chicken Pox, Measles, Mumps, Novel Coronavirus - Past Surgical History HEENT Surgical History: Reports: None Cardiovascular Surgical History: Reports: None GI Surgical History: Reports: None Endocrine Surgical History: Reports: None Musculoskeletal Surgical History: Reports: None Oncologic Surgical History: Reports: Mastectomy Dermatological Surgical History: Reports: Plastic Surgical Reconstruction/Repair Social & Family History - Family History Family Medical History: Unobtainable - Caffeine Use Caffeine Use: Reports: Soda Caffeine Use Comment: patient was unable to answer question. she was very sleepy and forgetful. - Recreational Drug Use Recreational Drug Use: No - Living Situation & Occupation Living situation: Reports: , Assisted Living Occupation: Retired ED ROS GENERAL - Review of Systems Review Of Systems: See Below ED EXAM, SKIN/RASH Exam: See Below Course - Vital Signs Last Recorded V/S: Last Vital Signs Temp 36.4 C 03/09/21 15:31 Pulse 58 L 03/09/21 15:31 Resp 18 03/09/21 15:31 BP 161/104 H 03/09/21 18:32 Pulse Ox 96 03/09/21 15:31 - Orders/Labs/Meds Meds: Medications Discontinued Medications Generic Name Dose Route Start Last Admin Trade Name Ryan PRN Reason Stop Dose Admin Bacitracin 1 dose 03/09/21 18:48 03/09/21 18:50 Bacitracin Oint 1 Gm U/D Packet TOP 03/09/21 18:49 1 dose ONETIME ONE Administration Lidocaine/Epinephrine 20 ml 03/09/21 18:13 03/09/21 18:32 Lidocaine 1% With Epinephrine 1:100,000 20 Ml Mdv INJECT 03/09/21 18:14 20 ml ONETIME ONE Administration Departure - Departure Time of Disposition: 18:42 Disposition: Home, Self-Care 01 Condition: Fair Clinical Impression: Scalp laceration - Discharge Information *PRESCRIPTION DRUG MONITORING PROGRAM REVIEWED*: No *COPY OF PRESCRIPTION DRUG MONITORING REPORT IN PATIENT JULIANNA: No Instructions: Laceration Care, Adult Referrals: PCP,None [Primary Care Provider] - Forms: ED Department Discharge Additional Instructions: You were evaluated today on an emergent basis. At this time we did repair the stitch to your forehead. We placed 2 stitches and I recommend to have those removed in 5 to 7 days. Please return to the emergency department if you have any redness, pus drainage. In addition no imaging of the head was obtained if you have any vomiting or any altered mentation please return to the emergency department. [facility] - Primary Care [address] [place] [id number] [facility] [address] [place] [id number] The patient is informed of any results of their evaluation and diagnostic workup and all questions are answered. They are given discharge instructions and return precautions. The patient is stable for discharge. The patient states they understand and agree with the plan and that they will return if their symptoms get worse or if they have any new concerns. The following information is given to patients seen in the emergency department who are being discharged to home. This information is to outline your options for follow-up care. We provide all patients seen in our emergency department with a follow-up referral. The need for follow-up, as well as the timing and circumstances, are variable depending upon the specifics of your emergency department visit. If you don't have a primary care physician on staff, we will provide you with a referral. We always advise you to contact your personal physician following an emergency department visit to inform them of the circumstance of the visit and for follow-up with them and/or the need for any referrals to a consulting specialist. The emergency department will also refer you to a specialist when appropriate. This referral assures that you have the opportunity for follow-up care with a specialist. All of these measure are taken in an effort to provide you with optimal care, which includes your follow-up. Under all circumstances we always encourage you to contact your private physician who remains a resource for coordinating your care. When calling for follow-up care, please make the office aware that this follow-up is from your recent emergency room visit. If for any reason you are refused follow-up, please contact the [facility] Emergency Department at and asked to speak to the emergency department charge nurse. Sepsis Event Note (ED) - Evaluation Sepsis Screening Result: No Definite Risk
[2021-03-09] MEDS ORDERED: Bacitracin Oint 1 GM U/D Packet TOP ONE (18:48)
== END 2021-03-09 18:56 | disposition home or self-care (01) ==
LOC: MW.ED 15:07
DX: S01.01XA Laceration without foreign body of scalp, initial encounter (principal); G30.9 Alzheimer's disease, unspecified; G20 Parkinson's disease; F02.80 Dementia in other diseases classified elsewhere, unspecified severity, without behavioral disturbance, psychotic disturbance, mood disturbance, and anxiety; M19.90 Unspecified osteoarthritis, unspecified site; Z88.5 Allergy status to narcotic agent; Z88.8 Allergy status to other drugs, medicaments and biological substances; Z79.82 Long term (current) use of aspirin; Z79.899 Other long term (current) drug therapy; W07.XXXA Fall from chair, initial encounter
CPT/HCPCS: 12011; 99283-25

== ENCOUNTER 2022-08-12 13:54 | Emergency (ER) | payer MEDICARE, MEDICAID ==
[2022-08-12 15:12] LABS: BASOPHILS PERCENT AUTO 0.4 % (0.0-1.5); EOSINOPHILS ABSOLUTE AUTO 0.1 K/uL (0.0-0.7); EOSINOPHILS PERCENT AUTO 0.9 % (0.0-7.0); HEMATOCRIT 36.1 % (36.0-46.0); HEMOGLOBIN 12.1 g/dL (12.0-16.0); LYMPHOCYTES ABSOLUTE AUTO 1.4 K/uL (0.6-2.4); LYMPHOCYTES PERCENT AUTO 18.1 % (16.0-40.0); MEAN CORPUSCULAR HEMOGLOBIN 31.8 pg (27.0-32.0); MEAN CORPUSCULAR HGB CONC 33.5 g/dL (31.0-37.0); MONOCYTES ABSOLUTE AUTO 0.8 K/uL (0.0-0.8); MONOCYTES PERCENT AUTO 10.2 % (0.0-15.0); NEUTROPHILS ABSOLUTE AUTO 5.5 K/uL (1.4-5.7); NEUTROPHILS PERCENT AUTO 70.4 % (48.0-80.0); PLATELET COUNT,PLT 310 K/uL (150-400); WHITE BLOOD CELL COUNT,WBC 7.84 K/uL (4.0-11.0)
[2022-08-12 15:21] LABS: BILIRUBIN,URINE NEGATIVE (NEGATIVE); COLOR,URINE YELLOW; GLUCOSE,URINE NEGATIVE (NEGATIVE); KETONES,URINE NEGATIVE (NEGATIVE); LEUKOCYTE ESTERASE,URINE MODERATE (NEGATIVE); NITRITE,URINE POSITIVE (NEGATIVE); OCCULT BLOOD,URINE NEGATIVE (NEGATIVE); PH,URINE 6.5 (5.0-8.0); PROTEIN,URINE NEGATIVE (NEGATIVE); UROBILINOGEN,URINE 0.2 EU/dL (<2.0)
[2022-08-12 15:23] LABS: APPEARANCE,URINE HAZY
[2022-08-12 15:32] LABS: BACTERIA,URINE 3+ (NEGATIVE); EPITHELIAL CELLS,URINE RARE (NONE-FEW); RBC,URINE 0-2 (0-2/HPF)
[2022-08-12 15:41] LABS: CALCIUM 9.5 mg/dL (8.5-10.1); CARBON DIOXIDE,CO2 27.4 mmol/L (21.0-32.0); CREATININE 1.2 mg/dL (0.6-1.0); EST CRCL DRUG DOSING (CG) 32.52 mL/min; POTASSIUM,K 3.9 mmol/L (3.5-5.1)
[2022-08-12] MEDS ORDERED: cefTRIAXone 1 GM Vial IM STA (15:47)
[2022-08-12] MEDS ORDERED: cefTRIAXone 1 GM in Sodium Chloride 0.9% 50 ML IV ONE (16:01)
[2022-08-12 17:11] VITALS: BP 120/81; PULSE 65
== END 2022-08-12 17:08 ==
LOC: MW.ED 13:54
DX: R55 Syncope and collapse (principal); N30.00 Acute cystitis without hematuria; Z86.73 Personal history of transient ischemic attack (TIA), and cerebral infarction without residual deficits; Z88.5 Allergy status to narcotic agent; Z88.8 Allergy status to other drugs, medicaments and biological substances; Z79.82 Long term (current) use of aspirin; Z79.899 Other long term (current) drug therapy; Z86.16 Personal history of COVID-19
CPT/HCPCS: 36415; 80048; 81001; 85025; 87086; 87088; 87186; 93005; 96365; 99285; J0696; J3490; 93010; 99284

== ENCOUNTER 2023-07-24 11:31 | Inpatient (IN) | payer MEDICARE ==
[2023-07-24 11:43] LABS: BASE EXCESS ARTERIAL -2.1 (-2.0-3.0); BICARBONATE,ARTERIAL 23 mEq/L (22-26); PCO2 ARTERIAL 40 mmHG (35-45); PO2 ARTERIAL 61 mmHG (80-105)
[2023-07-24 11:53] LABS: BASOPHILS ABSOLUTE AUTO 0.03 K/uL (0.00-0.20); BASOPHILS PERCENT AUTO 0.2 % (0.0-1.0); EOSINOPHILS ABSOLUTE AUTO 0.05 K/uL (0.00-0.45); EOSINOPHILS PERCENT AUTO 0.4 % (0.0-6.0); HEMATOCRIT 39.7 % (37.0-47.0); IMMATURE GRAN ABSOLUTE AUTO 0.22 K/uL (0.00-0.05); IMMATURE GRAN PERCENT AUTO 1.8 % (0.0-0.4); LYMPHOCYTES ABSOLUTE AUTO 1.71 K/uL (1.00-4.80); LYMPHOCYTES PERCENT AUTO 13.8 % (24.0-44.0); MEAN CORPUSCULAR HEMOGLOBIN 30.9 pg (28.0-32.0); MEAN CORPUSCULAR HGB CONC 32.7 g/dL (32.0-36.0); MEAN CORPUSCULAR VOLUME 94.3 fL (83.0-99.0); MEAN PLATELET VOLUME 9.8 fL (9.4-12.3); MONOCYTES ABSOLUTE AUTO 0.41 K/uL (0.00-0.80); MONOCYTES PERCENT AUTO 3.3 % (0.0-8.0); NEUTROPHILS ABSOLUTE AUTO 9.98 K/uL (1.80-7.70); NEUTROPHILS PERCENT AUTO 80.5 % (41.0-71.0); PLATELET COUNT,PLT 291 K/uL (150-400); RED BLOOD CELL COUNT 4.21 M/uL (4.10-5.30)
[2023-07-24 11:57] LABS: CALCIUM 9.7 mg/dL (8.5-10.1); CARBON DIOXIDE,CO2 26.9 mmol/L (21.0-32.0); CREATININE 1.4 mg/dL (0.6-1.0); EST CRCL DRUG DOSING (CG) 28.5 mL/min; POTASSIUM,K 4.9 mmol/L (3.5-5.1)
[2023-07-24] MEDS: cefTRIAXone 1 GM in Sodium Chloride 0.9% 50 ML IV ONE (12:56)
[2023-07-24] MEDS: metroNIDAZOLE/Normal Saline 500 MG in Premix Bag 1 BAG IV SCH (13:20)
[2023-07-24] MEDS ORDERED: Albuterol/Ipratropium 3.0-0.5 MG/3 ML Neb Soln NEB PRN (13:39)
[2023-07-24] MEDS ORDERED: Polyethylene Glycol 3350 Powder 17 GM Packet PO PRN (13:39)
[2023-07-24] MEDS ORDERED: Acetaminophen 650 MG Supp RECTAL PRN (13:39)
[2023-07-24] MEDS ORDERED: Ondansetron 4 MG/2 ML SDV IVPUSH PRN (13:39)
[2023-07-24] MEDS: Enoxaparin 40 MG/0.4 ML Syringe SUBCUT SCH ×2 (16:17→18:03)
[2023-07-24] MEDS: Ampicillin/Sulbactam Na 3 GM in Sodium Chloride 0.9% 100 ML IV SCH (18:04)
[2023-07-24] MEDS: Lactated Ringers 1,000 ML IV ONE (18:38)
[2023-07-24] MEDS ORDERED: Docusate Sodium 100 MG Cap PO PRN (23:01)
[2023-07-24] MEDS ORDERED: Bisacodyl 5 MG Tab PO PRN (23:01)
[2023-07-24 23:15] LABS: BILIRUBIN,URINE NEGATIVE (NEGATIVE); COLOR,URINE YELLOW; GLUCOSE,URINE NEGATIVE (NEGATIVE); KETONES,URINE NEGATIVE (NEGATIVE); LEUKOCYTE ESTERASE,URINE NEGATIVE (NEGATIVE); NITRITE,URINE POSITIVE (NEGATIVE); OCCULT BLOOD,URINE NEGATIVE (NEGATIVE); PROTEIN,URINE TRACE mg/dL (NEGATIVE); UROBILINOGEN,URINE 0.2 EU/dL (<2.0)
[2023-07-24 23:21] LABS: APPEARANCE,URINE SLT CLOUDY
[2023-07-24 23:23] LABS: BACTERIA,URINE 2+ (NEGATIVE); EPITHELIAL CELLS,URINE MANY (NONE-FEW); RBC,URINE 0-1 (0-2/HPF)
[2023-07-25] MEDS: Gabapentin 100 MG Cap PO SCH (00:37)
[2023-07-25] MEDS: OLANZapine 5 MG Tab PO SCH (00:38)
[2023-07-25] MEDS: Acetaminophen 325 MG Tab PO PRN (01:56)
[2023-07-25 07:05] LABS: HEMATOCRIT 33.5 % (37.0-47.0); HEMOGLOBIN 11.2 g/dL (12.0-16.0); MEAN CORPUSCULAR HEMOGLOBIN 31.3 pg (28.0-32.0); MEAN CORPUSCULAR HGB CONC 33.4 g/dL (32.0-36.0); MEAN CORPUSCULAR VOLUME 93.6 fL (83.0-99.0); MEAN PLATELET VOLUME 9.8 fL (9.4-12.3); PLATELET COUNT,PLT 298 K/uL (150-400); RED BLOOD CELL COUNT 3.58 M/uL (4.10-5.30); WHITE BLOOD CELL COUNT,WBC 15.12 K/uL (3.9-11.3)
[2023-07-25 07:22] LABS: CALCIUM 8.9 mg/dL (8.5-10.1); CARBON DIOXIDE,CO2 22.9 mmol/L (21.0-32.0); CREATININE 1.1 mg/dL (0.6-1.0); EST CRCL DRUG DOSING (CG) 36.28 mL/min; MAGNESIUM 1.8 mg/dL (1.8-2.4); POTASSIUM,K 3.4 mmol/L (3.5-5.1)
[2023-07-25] MEDS: Acidophilus with Citrus Pectin/L.acidophilus Tab PO SCH (09:51)
[2023-07-25] MEDS: Gabapentin 300 MG Cap PO SCH (09:51)
[2023-07-25] MEDS: FLUoxetine 20 MG Cap PO SCH (09:51)
[2023-07-25] MEDS: traMADol 50 MG Tab PO SCH (09:51)
[2023-07-25] MEDS: Donepezil 5 MG Tab PO SCH (09:51)
[2023-07-25] MEDS: Memantine 10mg tab PO SCH (09:55)
[2023-07-25] MEDS: Potassium Chloride 10 MEQ in Premix Bag 1 BAG IV SCH (12:10)
[2023-07-25] MEDS: Sodium Chloride 0.9% 250 ML IV ONE (12:12)
[2023-07-26 05:48] LABS: BASOPHILS ABSOLUTE AUTO 0.04 K/uL (0.00-0.20); BASOPHILS PERCENT AUTO 0.4 % (0.0-1.0); EOSINOPHILS ABSOLUTE AUTO 0.09 K/uL (0.00-0.45); EOSINOPHILS PERCENT AUTO 0.9 % (0.0-6.0); HEMATOCRIT 31.2 % (37.0-47.0); HEMOGLOBIN 10.3 g/dL (12.0-16.0); IMMATURE GRAN ABSOLUTE AUTO 0.04 K/uL (0.00-0.05); IMMATURE GRAN PERCENT AUTO 0.4 % (0.0-0.4); LYMPHOCYTES ABSOLUTE AUTO 1.71 K/uL (1.00-4.80); LYMPHOCYTES PERCENT AUTO 17.7 % (24.0-44.0); MEAN CORPUSCULAR HEMOGLOBIN 31.8 pg (28.0-32.0); MEAN CORPUSCULAR VOLUME 96.3 fL (83.0-99.0); MEAN PLATELET VOLUME 9.6 fL (9.4-12.3); MONOCYTES ABSOLUTE AUTO 0.58 K/uL (0.00-0.80); NEUTROPHILS PERCENT AUTO 74.6 % (41.0-71.0); PLATELET COUNT,PLT 233 K/uL (150-400); RED BLOOD CELL COUNT 3.24 M/uL (4.10-5.30); WHITE BLOOD CELL COUNT,WBC 9.66 K/uL (3.9-11.3)
[2023-07-26 06:14] LABS: CALCIUM 8.9 mg/dL (8.5-10.1); CARBON DIOXIDE,CO2 23.5 mmol/L (21.0-32.0); CREATININE 0.9 mg/dL (0.6-1.0); EST CRCL DRUG DOSING (CG) 44.34 mL/min; MAGNESIUM 1.9 mg/dL (1.8-2.4); POTASSIUM,K 3.2 mmol/L (3.5-5.1)
[2023-07-26] MEDS: Sodium Chloride 0.9% 500 ML IV ONE (07:25)
[2023-07-26] MEDS: Potassium Chloride 20 MEQ Tab.ER PO ONE (07:26)
[2023-07-26] MEDS: Potassium Chloride 10 MEQ in Premix Bag 1 BAG IV SCH (07:26)
[2023-07-26] MEDS: HYDROmorphone 0.5 MG/0.5 ML Syringe IVPUSH ONE (10:05)
[2023-07-26] MEDS ORDERED: FLUoxetine 20 MG Cap PO SCH (11:15)
[2023-07-26] MEDS: Lactated Ringers 1,000 ML IV ONE (11:46)
[2023-07-26] MEDS: Memantine 10mg tab PO SCH (13:31)
[2023-07-26] MEDS: Acetaminophen 500 MG Tab PO SCH (13:31)
[2023-07-26] MEDS: HYDROmorphone 0.5 MG/0.5 ML Syringe IVPUSH PRN (17:07)
[2023-07-26] MEDS ORDERED: Gabapentin 300 MG Cap PO SCH (21:00)
[2023-07-27] MEDS: Phenazopyridine 200 MG Tab PO PRN (06:05)
[2023-07-27 06:11] LABS: BASOPHILS ABSOLUTE AUTO 0.02 K/uL (0.00-0.20); BASOPHILS PERCENT AUTO 0.3 % (0.0-1.0); EOSINOPHILS ABSOLUTE AUTO 0.23 K/uL (0.00-0.45); EOSINOPHILS PERCENT AUTO 3.5 % (0.0-6.0); HEMATOCRIT 32.8 % (37.0-47.0); HEMOGLOBIN 10.8 g/dL (12.0-16.0); IMMATURE GRAN ABSOLUTE AUTO 0.04 K/uL (0.00-0.05); IMMATURE GRAN PERCENT AUTO 0.6 % (0.0-0.4); LYMPHOCYTES ABSOLUTE AUTO 1.53 K/uL (1.00-4.80); LYMPHOCYTES PERCENT AUTO 23.3 % (24.0-44.0); MEAN CORPUSCULAR HEMOGLOBIN 31.5 pg (28.0-32.0); MEAN CORPUSCULAR HGB CONC 32.9 g/dL (32.0-36.0); MEAN CORPUSCULAR VOLUME 95.6 fL (83.0-99.0); MEAN PLATELET VOLUME 9.7 fL (9.4-12.3); MONOCYTES ABSOLUTE AUTO 0.44 K/uL (0.00-0.80); MONOCYTES PERCENT AUTO 6.7 % (0.0-8.0); NEUTROPHILS ABSOLUTE AUTO 4.31 K/uL (1.80-7.70); NEUTROPHILS PERCENT AUTO 65.6 % (41.0-71.0); PLATELET COUNT,PLT 260 K/uL (150-400); RED BLOOD CELL COUNT 3.43 M/uL (4.10-5.30); WHITE BLOOD CELL COUNT,WBC 6.57 K/uL (3.9-11.3)
[2023-07-27 06:39] LABS: CALCIUM 9.3 mg/dL (8.5-10.1); CARBON DIOXIDE,CO2 23.8 mmol/L (21.0-32.0); CREATININE 0.8 mg/dL (0.6-1.0); EST CRCL DRUG DOSING (CG) 49.88 mL/min; POTASSIUM,K 3.8 mmol/L (3.5-5.1)
[2023-07-28 06:04] LABS: BASOPHILS ABSOLUTE AUTO 0.02 K/uL (0.00-0.20); BASOPHILS PERCENT AUTO 0.4 % (0.0-1.0); EOSINOPHILS PERCENT AUTO 5.6 % (0.0-6.0); HEMATOCRIT 29.9 % (37.0-47.0); HEMOGLOBIN 9.9 g/dL (12.0-16.0); IMMATURE GRAN ABSOLUTE AUTO 0.02 K/uL (0.00-0.05); IMMATURE GRAN PERCENT AUTO 0.4 % (0.0-0.4); LYMPHOCYTES ABSOLUTE AUTO 1.52 K/uL (1.00-4.80); LYMPHOCYTES PERCENT AUTO 28.1 % (24.0-44.0); MEAN CORPUSCULAR HEMOGLOBIN 31.4 pg (28.0-32.0); MEAN CORPUSCULAR HGB CONC 33.1 g/dL (32.0-36.0); MEAN CORPUSCULAR VOLUME 94.9 fL (83.0-99.0); MEAN PLATELET VOLUME 9.6 fL (9.4-12.3); MONOCYTES ABSOLUTE AUTO 0.63 K/uL (0.00-0.80); MONOCYTES PERCENT AUTO 11.7 % (0.0-8.0); NEUTROPHILS ABSOLUTE AUTO 2.91 K/uL (1.80-7.70); NEUTROPHILS PERCENT AUTO 53.8 % (41.0-71.0); PLATELET COUNT,PLT 277 K/uL (150-400); RED BLOOD CELL COUNT 3.15 M/uL (4.10-5.30)
[2023-07-28 06:20] LABS: CALCIUM 8.8 mg/dL (8.5-10.1); CARBON DIOXIDE,CO2 23.9 mmol/L (21.0-32.0); CREATININE 0.7 mg/dL (0.6-1.0); EST CRCL DRUG DOSING (CG) 57.01 mL/min; POTASSIUM,K 3.4 mmol/L (3.5-5.1)
[2023-07-28] MEDS: Potassium Chloride 20 MEQ Tab.ER PO ONE (07:37)
[2023-07-28] MEDS: Sodium Chloride 0.45% 1,000 ML IV SCH (11:01)
[2023-07-29 06:36] LABS: CALCIUM 8.8 mg/dL (8.5-10.1); CARBON DIOXIDE,CO2 23.6 mmol/L (21.0-32.0); CREATININE 0.8 mg/dL (0.6-1.0); EST CRCL DRUG DOSING (CG) 49.88 mL/min; POTASSIUM,K 3.2 mmol/L (3.5-5.1)
[2023-07-29] MEDS ORDERED: Potassium Chloride 10 MEQ in Premix Bag 1 BAG IV SCH (07:45)
[2023-07-29] MEDS ORDERED: Sodium Chloride 0.9% 250 ML IV ONE (08:00)
[2023-07-29] MEDS: Potassium Chloride 20 MEQ Tab.ER PO ONE (08:36)
[2023-07-29 08:49] VITALS: BP 164/77; PULSE 61
== END 2023-07-29 11:15 | DRG 177 ==
LOC: MW.ED 11:31 → MW.MS 13:03
PROVIDERS: ADMIT Family Medicine; ATTEND Family Medicine
PROC: 4A033R1 Measurement of Arterial Saturation, Peripheral, Percutaneous Approach (ICD-10-PCS; principal; 2023-07-24)
PROC: 0T9B70Z Drainage of Bladder with Drainage Device, Via Natural or Artificial Opening (ICD-10-PCS; 2023-07-27)
DX: J69.0 Pneumonitis due to inhalation of food and vomit (principal); J96.01 Acute respiratory failure with hypoxia; F02.84 Dementia in other diseases classified elsewhere, unspecified severity, with anxiety; F02.83 Dementia in other diseases classified elsewhere, unspecified severity, with mood disturbance; F02.818 Dementia in other diseases classified elsewhere, unspecified severity, with other behavioral disturbance; N39.0 Urinary tract infection, site not specified; E87.1 Hypo-osmolality and hyponatremia; G30.9 Alzheimer's disease, unspecified; J13 Pneumonia due to Streptococcus pneumoniae; Z66 Do not resuscitate; E78.00 Pure hypercholesterolemia, unspecified; K21.9 Gastro-esophageal reflux disease without esophagitis; M19.90 Unspecified osteoarthritis, unspecified site; M54.9 Dorsalgia, unspecified; G89.29 Other chronic pain; G20.A1 Parkinson's disease without dyskinesia, without mention of fluctuations; F31.9 Bipolar disorder, unspecified; M81.0 Age-related osteoporosis without current pathological fracture; E87.8 Other disorders of electrolyte and fluid balance, not elsewhere classified; K59.00 Constipation, unspecified; R33.9 Retention of urine, unspecified; Z88.5 Allergy status to narcotic agent; Z88.8 Allergy status to other drugs, medicaments and biological substances; Z79.899 Other long term (current) drug therapy; Z79.82 Long term (current) use of aspirin; Z86.73 Personal history of transient ischemic attack (TIA), and cerebral infarction without residual deficits; Z85.3 Personal history of malignant neoplasm of breast; Z86.16 Personal history of COVID-19; Z85.820 Personal history of malignant melanoma of skin; Z90.10 Acquired absence of unspecified breast and nipple; Z98.890 Other specified postprocedural states
CPT/HCPCS: 36415; 36600; 71045; 80048; 82803; 85025; 96374; 99285; J0696; J3490; 51702; 81001; 82947; 83735; 85027; 87899; 94667; 99291; A9270-GY; J0295; J1170; J1650; J1836; J3480; J7030; J7040; J7050; J7120